=== PATIENT | male | born 1935 | race Caucasian/White ===

== ENCOUNTER 2018-09-23 17:24 | Inpatient (IN) | payer OTHER ==
--- NOTE | 2018-09-23 18:05 | PDOC ---
History of Present Illness - General Chief Complaint: Pain Stated Complaint: Pain Time Seen by Provider: 09/23/18 18:04 - History of Present Illness Initial Comments: 09/23/18 18:15 The patient is an 82 year old male who denies any PMH who presents for evaluation of abdominal pain. The patient is accompanied by family who assists in providing the history. They note a 1 week history of epigastric and RUQ burning abdominal pain worse with eating and acidic foods prompting his presentation to the ED for further evaluation. They note that the patient has been having significant weight loss over the past few weeks due to poor oral intake due to the pain as well. The patient is visiting from [place] and notes that he had an endoscopy at some point in [place] which was unremarkable. He otherwise denies fevers, chills, SOB, chest pain, nausea, vomiting, or changes with urination or bowel movements. Past History - Past Medical History Allergies/Adverse Reactions: Allergies Allergy/AdvReac Type Severity Reaction Status Date / Time No Known Allergies Allergy Verified 09/23/18 17:35 Home Medications: Ambulatory Orders Losartan Potassium [Cozaar -] 50 mg PO BID 09/24/18 COPD: No - Immunization History Immunization Up to Date: Yes - Suicide/Smoking/Psychosocial Hx Smoking History: Never smoked Hx Alcohol Use: No Drug/Substance Use Hx: No Review of Systems - Review of Systems Comments:: 09/23/18 18:20 Constitutional: No fevers, chills, fatigue, malaise HEENT: No Rhinorrhea, nasal congestion, visual changes Cardiovascular: No chest pain, syncope, palpitations, lightheadedness Respiratory: No Cough, SOB, Hemoptysis, Gastrointestinal: Abdominal pain. No Nausea, Vomiting, Constipation, Diarrhea, Melena Genitourinary: No Dysuria, Frequency, Urgency, Hesitancy, Hematuria, Flank pain Musculoskeletal: No Myalgia, arthralgia Skin: No rashes, itching, bruising, pallor Neurologic: No Headache, Dizziness, Numbness, Weakness, or Tingling Psychiatric: No Hallucinations. No SI or HI *Physical Exam - Vital Signs Last Vital Signs Temp Pulse Resp BP Pulse Ox 98.0 F 89 17 127/43 L 98 09/23/18 17:35 09/23/18 17:35 09/23/18 17:35 09/23/18 17:35 09/23/18 17:35 - Physical Exam Comments: 09/23/18 18:20 General Appearance: Nourished. No Apparent Distress HEENT: No Pharyngeal Erythema, Tonsillar Exudate, Tonsillar Erythema Neck: No Cervical Lymphadenopathy Respiratory/Chest: Lungs Clear, Normal Breath Sounds. No Crackles, Rales, Rhonchi, Wheezing Cardiovascular: Regular Rhythm, Regular Rate. No Murmur, Gallops, Rubs Gastrointestinal/Abdominal: Normal Bowel Sounds, Soft. RUQ tenderness to palpation on exam. No Guarding, Rebound, Musculoskeletal: No CVA Tenderness Extremity: Normal Capillary Refill Integumentary: Normal Color, Dry, Warm Neurologic: Fully Oriented, Alert, Normal Mood/Affect, Normal Response, ED Treatment Course - LABORATORY CBC & Chemistry Diagram: 09/24/18 06:45 09/24/18 06:00 Medical Decision Making - Medical Decision Making 09/23/18 18:21 The patient is an 82 year old male who denies any PMH who presents for evaluation of abdominal pain. Differential includes but is not limited to: Gastritis, ACS, Cholecysitis, Infectious, Metabolic Derangement. Given the patient's history and physical exam, we will obtain a cbc, cmp, troponin, lipase , coags, ekg, gallbladder US, CT abdomen/pelvis to evaluate further. We will treat with iv fluids, pepcid, and maalox and continue to monitor and reassess while here in the ED. 09/23/18 18:46 Bedside US demonstrates distended gallbladder without gallbladder wall thickening. Gallbladder sludge noted without gallstones. Emilia-hepatic free fluid noted as well. Unable to adequately view CBD. Official US to follow. 09/23/18 19:43 Patient signed out to the night team pending lab workup, US and CT. *DC/Admit/Observation/Transfer Diagnosis at time of Disposition: Metastatic cancer, Difficulty eating - Discharge Dispostion Condition at time of disposition: Stable - Referrals - Patient Instructions - Post Discharge Activity
[2018-09-23] MEDS ORDERED: FAMOTIDINE 20 MG/50 ML IVPB 20 MG/50 ML MG IVPB ONE ×2 (18:13→18:35)
--- NOTE | 2018-09-23 18:13 | PDOC ---
Attending Attestation - HPI HPI: The patient is an 82 year old male (current smoker- 2 cigarettes per day), with a significant PMH of hypertension, who presents to the emergency department today complaining of abdominal pain for six months. As per daughter, patient has been complaining of abdominal pain for six months. He has seen multiple doctors in [facility], none of which could provide him with a causal diagnosis. Patient had endoscopy done in the past, which was negative. He describes his abdominal pain as localized to the right upper quadrant, exacerbated with touch , burning in nature, and worse with eating acidic foods or meat. Patient also endorses significant weight loss secondary to decreased PO intake, losing 30 pounds throughout the past six months. Patient is currently visiting from [facility] (flew in 5 days ago), and had an appointment with a GI doctor (Not on Staff) who cancelled, prompting his visit to the ED for treatment. The patient denies chest pain, shortness of breath, headache and dizziness. Denies fever, chills, nausea, vomit, diarrhea and constipation. Denies dysuria, frequency, urgency and hematuria. Allergies: NKA Past surgical history: Endoscopy Social history: Current smoker (2 cigarettes per day) PCP: From [facility] 09/23/18 18:49 - Physicial Exam PE: GENERAL: The patient is in no acute distress. HEAD: Normal with no signs of trauma. EYES: +Artificial left eye. Right eye EOMI, sclera anicteric, conjunctiva clear. ENT: Ears normal, nares patent, oropharynx clear without exudates. Moist mucous membranes. NECK: Normal range of motion, supple without lymphadenopathy, JVD, or masses. LUNGS: Breath sounds equal, clear to auscultation bilaterally. No wheezes, and no crackles. HEART:Regular rate and rhythm, normal S1 and S2 without murmur, rub or gallop. ABDOMEN: +Right upper quadrant severely tender to palpation. Soft, normoactive bowel sounds. No guarding, no rebound. No masses palpable. EXTREMITIES: Normal range of motion, no edema. No clubbing or cyanosis. No erythema, or tenderness. NEUROLOGICAL: Cranial nerves II through XII grossly intact. Normal speech. No focal neurological deficits. MUSCULOSKELETAL: Back non-tender to palpation, no CVA tenderness SKIN: Warm, Dry, normal turgor, no rashes or lesions noted. 09/23/18 18:50 - Medical Decision Making Bedside US: Distended gall bladder and free fluid around the liver visualized. EXAM#: TYPE/EXAM: RESULT: [id number] US/ABDOMEN US -LIMITED Right upper quadrant pain. IMPRESSION: Adequately distended gallbladder that is partially filled with a sludge and without wall thickening. There is a trace of pericholecystic free fluid. There is also minimal free fluid/ ascites in the right upper quadrant. The rest of the examination appears unremarkable. Reported By: Fausto Yuen MD 09/23/18 21:12 EXAM: ABDOMEN \\T\\ PELVIS CT WITH CONTR HISTORY: Right upper quadrant pain FINDINGS: There are bronchovascular nodules in the right lower lobe with tree-in-bud pattern compatible with nonspecific bronchiolitis Noncalcified nodule in the right lower lobe measuring 7 mm, series 4 image 18, nonspecific, cannot exclude a metastatic lesion Area of cystic bronchiectasis in the left lower lobe Bibasilar scarring Thickened appearance of the distal esophagus and irregular thickening and enhancement of the gastric fundus and body concerning for malignancy There is extensive gastrohepatic and retroperitoneal adenopathy in the upper abdomen concerning for malignant adenopathy Perihepatic and perisplenic ascites with small amount of ascites in the pelvis The gallbladder is moderately distended with no radiopaque stones visualized. No appreciable gallbladder wall thickening The liver, spleen, pancreas, adrenal glands and kidneys are unremarkable There is no bowel distention A normal appendix is visualized The prostate is enlarged Multiple lytic lesions in the sacrum and pelvis the largest in the left iliac bone measuring 2 cm concerning for metastatic disease Rebel Peraza MD 09/24/2018 01:45 Documentation prepared by CORNELIA Kang, acting as medical record administrator for Veronica Harmon MD. 09/24/18 03:40 <Mary Meeks - Last Filed: 09/24/18 03:40> - Resident Resident Name: Barber Garcia - ED Attending Attestation I have performed the following: I have examined & evaluated the patient, The case was reviewed & discussed with the resident, I agree w/resident's findings & plan, Exceptions are as noted - Medical Decision Making 09/23/18 18:42 82 yo M h/o HTN presenting to the ER with a complaint of abdominal pain x 6 months No fevers, no chills No nausea, no vomiting, no diarrhea Pt has had constant pain rated "mild", pain is worse with palpation of the right upper abdomen pt notes that he can not eat meat, he is now eating pureed and liquid diet Weight loss - 30 lbs in the past 6 months Pt recently arrived from [place] where he had a work up consisting of Endoscopy which was reportedly negative Pt was supposed to see a GI doctor today but the appointment was cancelled Pt denies h/o abdominal surgery On examination: RUQ exquisitely tender to palpation Will do: Labs including trop EKG CT and US PPI Re Assess 09/23/18 19:50 Laboratory Tests 09/23/18 09/23/18 09/23/18 18:57 18:57 18:57 WBC 7.2 Hgb 9.2 L Hct 30.5 L Plt Count 437 H INR 1.18 H BUN 13 Creatinine 0.6 Total Bilirubin 0.2 AST 20 ALT 12 L Lipase 281 09/24/18 00:41 EKG - NSR rate of 69 bpm, no ST elevation or depression, t wave inversion v4-v6 09/24/18 01:11 Laboratory Tests 09/23/18 18:57 Creatine Kinase 41 Troponin I < 0.02 CT was not sent Still pending Thickened appearance of the distal esophagus and irregular thickening and enhancement of the gastric fundus and body concerning for malignancy There is extensive gastrohepatic and retroperitoneal adenopathy in the upper abdomen concerning for malignant adenopathy Perihepatic and perisplenic ascites with small amount of ascites in the pelvis The gallbladder is moderately distended with no radiopaque stones visualized. No appreciable gallbladder wall thickening The liver, spleen, pancreas, adrenal glands and kidneys are unremarkable There is no bowel distention A normal appendix is visualized The prostate is enlarged Multiple lytic lesions in the sacrum and pelvis the largest in the left iliac bone measuring 2 cm concerning for metastatic disease Clinical impression: new diagnosis of cancer <Veronica Harmon - Last Filed: 09/24/18 20:03> *DC/Admit/Observation/Transfer <Mary Meeks - Last Filed: 09/24/18 03:40> - Discharge Dispostion Decision to Admit order: Yes <Veronica Harmon - Last Filed: 09/24/18 20:03> Diagnosis at time of Disposition: Metastatic cancer, Difficulty eating - Discharge Dispostion Condition at time of disposition: Stable
[2018-09-23] MEDS ORDERED: SODIUM CHLORIDE 500 ML IV STA (18:14)
[2018-09-23] MEDS ORDERED: MAG HYDROX/AL HYDROX/SIMETH 30 ML UNIT-DOSE CUP PO ONE (18:22)
[2018-09-23] MEDS ORDERED: MAG HYDROX/AL HYDROX/SIMETH 30 ML UNIT-DOSE CUP ONE (18:35)
[2018-09-23 19:06] LABS: BASO % 0.8 % (0-2.0); EOS % 1.2 % (0-4.5); HEMATOCRIT 30.5 % (35.4-49); HEMOGLOBIN 9.2 GM/dL (11.7-16.9); LYMPH % 25.2 % (8-40); MCH 21.1 pg (25.7-33.7); MCHC 30.2 g/dl (32.0-35.9); MEAN CELL VOLUME 69.6 fl (80-96); MEAN PLT VOLUME 6.7 fl (7.5-11.1); MONO % 6.9 % (3.8-10.2); NEUT % 65.9 % (42.8-82.8); PLATELET COUNT 437 K/MM3 (134-434); RBC 4.37 M/mm3 (4.00-5.60); RDW 19.5 % (11.9-15.9); WHITE BLOOD COUNT 7.2 K/mm3 (4.0-10.0)
--- NOTE | 2018-09-23 19:12 | PDOC ---
History of Present Illness - General Chief Complaint: Pain Stated Complaint: Pain Time Seen by Provider: 09/23/18 18:04 Past History - Past Medical History Allergies/Adverse Reactions: Allergies Allergy/AdvReac Type Severity Reaction Status Date / Time No Known Allergies Allergy Verified 09/23/18 17:35 Home Medications: Ambulatory Orders Losartan Potassium [Cozaar -] 50 mg PO BID 09/24/18 Albuterol 0.083% Nebulizer Trina [Ventolin 0.083% Nebulizer Soln -] 1 amp NEB Q6H PRN #1 amp 09/29/18 Amino Acids/Protein Hydrolys [Prosource No Carb Liquid Pkt] 30 ml PO BID@0800, 1730 #30 packet 09/29/18 Docusate Sodium [Colace -] 100 mg PO TID #90 capsule 09/29/18 Ferrous Sulfate [Feosol] 325 mg PO DAILY #30 ud 09/29/18 Labetalol HCl [Normodyne -] 100 mg PO BID #60 tablet 09/29/18 Mag Hydrox/Al Hydrox/Simeth [Mylanta Oral Suspension -] 30 ml PO Q6H PRN #30 cup 09/29/18 Pantoprazole Sodium [Protonix -] 40 mg PO DAILY #30 tablet.ec 09/29/18 Sennosides [Senna -] 1 tab PO BID #60 tablet 09/29/18 COPD: No - Immunization History Immunization Up to Date: Yes - Suicide/Smoking/Psychosocial Hx Smoking History: Never smoked Hx Alcohol Use: No Drug/Substance Use Hx: No *Physical Exam - Vital Signs Last Vital Signs Temp Pulse Resp BP Pulse Ox 98.0 F 89 17 127/43 L 98 09/23/18 17:35 09/23/18 17:35 09/23/18 17:35 09/23/18 17:35 09/23/18 17:35 ED Treatment Course - LABORATORY CBC & Chemistry Diagram: 10/01/18 06:00 10/01/18 06:00 - ADDITIONAL ORDERS Additional order review: 09/23/18 18:57 RBC 4.37 MCV 69.6 L MCHC 30.2 L RDW 19.5 H MPV 6.7 L Neutrophils % 65.9 Lymphocytes % 25.2 Monocytes % 6.9 Eosinophils % 1.2 Basophils % 0.8 - Medications Given in the ED: ED Medications Discontinued Medications Generic Name Dose Route Start Last Admin Trade Name Gene PRN Reason Stop Dose Admin Al Hydroxide/Mg Hydroxide 30 ml 09/23/18 18:22 09/23/18 18:52 Mylanta Oral Suspension - PO 09/23/18 18:23 30 ml ONCE ONE Administration Famotidine/Sodium Chloride 20 mg in 50 mls @ 100 mls/hr 09/23/18 18:13 18:52 Pepcid 20 Mg Premixed Ivpb - IVPB 09/23/18 18:42 100 mls/hr ONCE ONE Administration Medical Decision Making - Medical Decision Making 09/23/18 19:29 Patient signed out by resident Dr. Garcia. In short patient is an 82 year old man with RUQ pain with negative endoscopy in [place] but with bedside US exhibiting distended gallbladder and thickened gallbladder. Pending formal US and labs ED Course: US: distended gallbladder filled with sludghe without wall thickening, trace pericholecystic free fluid ' pending CT 09/24/18 03:30 Ct: thickened appearance of the distal esophagus and irregular thickening and enhancement of the gastric fundus and body concerning for malignancy. There is extensive gastrohepatic and retroperitoneal adenopathy in the upper abdomen concerning for malignant adenopathy. Perihepatic and perisplenic ascites with small amount of ascites in the pelvis. Multiple lytic lesiosn in the sacrum and pelvis the largest in the left iliac bone measuring 2cmconcerning for metastatic disease. Discussed case with resident Dr. Bueno Patient admitted for further managment and oncology evaluation *DC/Admit/Observation/Transfer Diagnosis at time of Disposition: Metastatic cancer, Difficulty eating - Discharge Dispostion Condition at time of disposition: Stable - Referrals - Patient Instructions - Post Discharge Activity
[2018-09-23 19:29] LABS: INR 1.18 (0.83-1.09); PROTHROMBIN TIME (PATIENT) 13.9 SEC (9.7-13.0)
[2018-09-23 19:30] LABS: ALBUMIN 2.6 g/dl (3.4-5.0); ALK PHOS 82 U/L (45-117); ANION GAP 7 MMOL/L (8-16); BILIRUBIN,TOTAL 0.2 mg/dL (0.2-1); BLOOD UREA NITROGEN 13 mg/dL (7-18); CALCIUM 7.5 mg/dL (8.5-10.1); CHLORIDE 99 mmol/L (98-107); CO2 26 mmol/L (21-32); CREATININE 0.6 mg/dL (0.55-1.3); GLUCOSE,RANDOM 85 mg/dL (74-106); LIPASE 281 U/L (73-393); POTASSIUM 4.5 mmol/L (3.5-5.1); SGOT/AST 20 U/L (15-37); SGPT/ALT 12 U/L (13-61); SODIUM 132 mmol/L (136-145)
[2018-09-23 21:40] LABS: ANISOCYTOSIS 1+
[2018-09-23 21:41] LABS: PLATELET ESTIMATE ADEQUATE; TARGET CELLS FEW
--- NOTE | 2018-09-24 03:19 | HP ---
CHIEF COMPLAINT: PCP: HISTORY OF PRESENT ILLNESS: This is an 82 yo M with no PMH, who presents due to abdominal pain x 1w. Pain is located in epigastric and RUQ region, nonradiating, burning and worsened with eating acidic foods. patient reportedly suffered significant weight loss over the past few weeks due to poor PO intake. RUQ US was unimprssive but CT abd /pelvis was significant for gastroesphgageal metastatic disease. Denies f/c, h/a, cp, cough, SOB, n/v/d/c, melena, hematochezia, dysuria, hematuria. History is obtained from patient and family. ER course was notable for: (1)labs (2)RUQ US, CT Pelvis (3)mylanta famotidine, NS Recent Travel: visiting from [place] PAST MEDICAL HISTORY: none PAST SURGICAL HISTORY: none Social History: Smoking: denies Alcohol:denies Drugs: denies Family History: noncontributory Allergies No Known Allergies Allergy (Verified 09/23/18 17:35) HOME MEDICATIONS: REVIEW OF SYSTEMS CONSTITUTIONAL: Absent: fever, chills HEENT: Absent: rhinorrhea, nasal congestion, throat pain CARDIOVASCULAR: Absent: chest pain, syncope, palpitations, irregular heart rate, lightheadedness , peripheral edema RESPIRATORY: Absent: cough, shortness of breath, dyspnea with exertion, orthopnea GASTROINTESTINAL: Absent: abdominal distension, nausea, vomiting, diarrhea, constipation, melena, hematochezia GENITOURINARY: Absent: dysuria, flank pain MUSCULOSKELETAL: Absent: back pain, neck pain SKIN: Absent: rash, itching, pallor HEMATOLOGIC/IMMUNOLOGIC: Absent: frequent infections ENDOCRINE: Absent: heat intolerance, cold intolerance NEUROLOGIC: Absent: headache, focal weakness or paresthesias PSYCHIATRIC: Absent: anxiety, depression PHYSICAL EXAMINATION Vital Signs - 24 hr 09/23/18 17:35 Temperature 98.0 F Pulse Rate 89 Respiratory 17 Rate Blood Pressure 127/43 L O2 Sat by Pulse 98 Oximetry (%) GENERAL: Awake, alert, and fully oriented, in no acute distress. HEAD: Normal with no signs of trauma. EYES: Pupils equal, round and reactive to light, extraocular movements intact, sclera anicteric, conjunctiva clear. EARS, NOSE, THROAT: Moist mucous membranes. NECK: supple LUNGS: Breath sounds equal, clear to auscultation bilaterally. HEART: Regular rate and rhythm, normal S1 and S2 ABDOMEN: Soft, slightly tender epigastric and ruq, not distended, normoactive bowel sounds, no guarding, no rebound, + hepatomegaly MUSCULOSKELETAL: No CVA tenderness. UPPER EXTREMITIES: 2+ pulses, warm, well-perfused. LOWER EXTREMITIES: warm, well-perfused. No calf tenderness. No peripheral edema. NEUROLOGICAL: Cranial nerves II-XII grossly intact. Normal speech. PSYCHIATRIC: Cooperative. Good eye contact. Appropriate mood and affect. SKIN: Warm, dry Laboratory Results - last 24 hr 09/23/18 09/23/18 09/23/18 18:57 18:57 18:57 WBC 7.2 RBC 4.37 Hgb 9.2 L Hct 30.5 L MCV 69.6 L MCH 21.1 L MCHC 30.2 L RDW 19.5 H Plt Count 437 H MPV 6.7 L Absolute Neuts (auto) 4.8 Neutrophils % 65.9 Lymphocytes % 25.2 Monocytes % 6.9 Eosinophils % 1.2 Basophils % 0.8 Nucleated RBC % 0 Hypochromia 2+ Platelet Estimate Adequate Anisocytosis 1+ Target Cells Few PT with INR 13.90 H INR 1.18 H PTT (Actin FS) 30.0 Sodium 132 L Potassium 4.5 Chloride 99 Carbon Dioxide 26 Anion Gap 7 L BUN 13 Creatinine 0.6 Creat Clearance w eGFR 129.64 Random Glucose 85 Calcium 7.5 L Total Bilirubin 0.2 AST 20 ALT 12 L Alkaline Phosphatase 82 Creatine Kinase 41 Troponin I < 0.02 Total Protein 6.0 L Albumin 2.[address]: thickened appearance of the distal esophagus and irregular thickening and enhancement of the gastric fundus and body concerning for malignancy. There is extensive gastrohepatic and retroperitoneal adenopathy in the upper abdomen concerning for malignant adenopathy. Perihepatic and perisplenic ascites with small amount of ascites in the pelvis. Multiple lytic lesiosn in the sacrum and pelvis the largest in the left iliac bone measuring 2cmconcerning for metastatic disease. ASSESSMENT/PLAN: This is an 82 yo M with no PMH, who presents due to abdominal pain x 1w. Abdominal pain Gastroesophageal mass with adenopathy suspicious for metastatic disease HTN -pain resolved with mylanta, famotidine, continue prn -heme/onc consult for further evaluation -GI consul for endoscopy biopsy -continue losartan Problem List - Problem (1) Cachexia Code(s): R64 - CACHEXIA (2) Metastatic cancer Code(s): C79.9 - SECONDARY MALIGNANT NEOPLASM OF UNSPECIFIED SITE (3) HTN (hypertension) Code(s): I10 - ESSENTIAL (PRIMARY) HYPERTENSION Visit type - Emergency Visit Emergency Visit: Yes ED Registration Date: 09/24/18 Care time: The patient presented to the Emergency Department on the above date and was hospitalized for further evaluation of their emergent condition. - New Patient This patient is new to me today: Yes Date on this admission: 09/24/18 - Critical Care Critical Care patient: No
--- NOTE | 2018-09-24 03:57 | PN ---
Teaching Attending Note Name of Resident: Rosa Elena Bueno ATTENDING PHYSICIAN STATEMENT I saw and evaluated the patient. I reviewed the resident's note and discussed the case with the resident. I agree with the resident's findings and plan as documented. SUBJECTIVE: Patient is an 82 year old man with PMH of HTN who presents to the ER with a complaint of abdominal pain for 6 months. He arrived from [facility] 1 week ago and was scheduled to see a GI doctor today, but his pain got very bad and he asked his daughter to bring him to the ER. Over the past 6 months he has not been able to eat solid food like meat and has been eating pureed food and liquids. Has had an unintentional 30 lb weight loss over the same period. Denies fevers, chills, nausea, vomiting, change in bowel habit, SOB, headache, dysuria or family history of cancer. No prior abdominal surgeries. Nonsmoker and does not use any illicit drugs. OBJECTIVE: Alert, frail and ill-looking Vital Signs Period Temp Pulse Resp BP Sys/Dangelo Pulse Ox Last 24 Hr 98.0 F-98.5 F 63-89 17-18 127-170/43-69 98-100 HEENT: No Jaundice, eye redness or discharge, PERRLA, EOMI. Normocephalic, atraumatic. External ears are normal and hearing is grossly intact. No nasal discharge. Neck: Supple, nontender. No palpable adenopathy or thyromegaly. No JVD Chest: Good effort. Clear to auscultation and percussion. Heart: Regular. No S3, rub or murmur Abdomen: Not distended, soft, RUQ tenderness and no HSM. No rebound or guarding. Normal bowel sounds. Ext: Peripheral pulses intact. No leg edema. Skin: Warm and dry. No petechiae, rash or ecchymosis. Neuro: Alert. Oriented x3. Slugish. CN 2-12 grossly intact. Sensation grossly intact in all four extremities and DTR are symmetric. Psych: Appropriate mood and affect - withdrawn and sad. Good insight. Home Medications Medication Instructions Recorded Losartan Potassium [Cozaar -] 50 mg PO BID 09/24/18 Abnormal Lab Results 09/23/18 09/23/18 09/23/18 18:57 18:57 18:57 Hgb 9.2 L Hct 30.5 L MCV 69.6 L MCH 21.1 L MCHC 30.2 L RDW 19.5 H Plt Count 437 H MPV 6.7 L PT with INR 13.90 H INR 1.18 H Sodium 132 L Anion Gap 7 L Calcium 7.5 L ALT 12 L Total Protein 6.0 L Albumin 2.6 L ASSESSMENT AND PLAN: 1. Abdominal pain (?Gastric cancer/esophageal cancer) - Ultrasound of the upper abdomen showed distended gallbladder filled with sludge without wall thickening , trace pericholecystic free fluid. CT scan of abd/pelvis with contrast showed - thickened appearance of the distal esophagus and irregular thickening and enhancement of the gastric fundus and body concerning for malignancy. There is extensive gastrohepatic and retroperitoneal adenopathy in the upper abdomen concerning for malignant adenopathy. Perihepatic and perisplenic ascites with small amount of ascites in the pelvis. Multiple lytic lesiosn in the sacrum and pelvis the largest in the left iliac bone measuring 2cm concerning for metastatic disease. Will consult oncology and GI to rule out stomach/esophageal cancer and craft a plan of care. Testing for tumor markers at this time unlikely to affect management since tissue diagnosis is the goal. Treat with analgesics and protonix and provide generous emotional support. Family does not want any cancer diagnosis discussed with him - alone. 2. Hypoalbuminemia - Possibly due to combined effects of malnutrition and inflammation associated with comorbid chronic conditions. Will get urinalysis. Will ensure adequate dietary protein intake and also consult export clerk. 3. Low MCV Anemia - Likely multifactorial. Do basic anemia work up including serial stool guaiacs, reticulocyte count and iron studies. 4. Hypertension - His BP improved to 127/43 in the ER. Will continue outpatient antihypertensive drugs and revise regimen to ensure smooth [id number] good BP control. Nonpharmacologic measures to control hypertension like salt restriction discussed. 5. DVT prophylaxis - Lovenox 40 mg SQ q 24 hours. 6. Advance directives - Full code
[2018-09-24] MEDS ORDERED: MAG HYDROX/AL HYDROX/SIMETH 30 ML UNIT-DOSE CUP PO PRN (04:08)
[2018-09-24] MEDS ORDERED: ACETAMINOPHEN 325 MG TABLET (FP) PO PRN (04:09)
[2018-09-24 07:38] LABS: HEMATOCRIT 29.5 % (35.4-49); HEMOGLOBIN 9.2 GM/dL (11.7-16.9); MCH 21.3 pg (25.7-33.7); MCHC 31.1 g/dl (32.0-35.9); MEAN CELL VOLUME 68.7 fl (80-96); PLATELET COUNT 444 K/MM3 (134-434); RDW 19.3 % (11.9-15.9); WHITE BLOOD COUNT 8.5 K/mm3 (4.0-10.0)
[2018-09-24 08:04] LABS: ANION GAP 5 MMOL/L (8-16); BLOOD UREA NITROGEN 9 mg/dL (7-18); CALCIUM 7.6 mg/dL (8.5-10.1); CHLORIDE 99 mmol/L (98-107); CO2 28 mmol/L (21-32); CREATININE 0.6 mg/dL (0.55-1.3); GLUCOSE,RANDOM 80 mg/dL (74-106); MAGNESIUM 2.2 mg/dL (1.8-2.4); PHOSPHOROUS 3.6 mg/dL (2.5-4.9); POTASSIUM 4.8 mmol/L (3.5-5.1); SODIUM 132 mmol/L (136-145)
[2018-09-24] MEDS ORDERED: PNEUMOC 13-VAL CONJ-DIP CRM/PF 0.5 ML DISP.SYRIN IM ONE (10:00)
[2018-09-24] MEDS ORDERED: FLU VACCINE QUAD 60 MCG/0.5 ML (MDV 18-19) IM ONE (10:00)
--- NOTE | 2018-09-24 10:39 | PN ---
Progress Note (short form) - Note Progress Note: Patient is an 82 year old man with PMHx of HTN who presents to the ER with a complaint of abdominal pain for 6 months. He arrived from [facility] 1 week ago and was scheduled to see a GI doctor but his abdominal pain became worse, came ED. for further care. Patient has no fever or chills. Vital Signs Temperature 98.5 F 09/24/18 03:10 Pulse Rate 67 09/24/18 03:58 Respiratory Rate 18 09/24/18 03:58 Blood Pressure 150/68 09/24/18 03:58 O2 Sat by Pulse Oximetry (%) 100 09/24/18 03:31 GENERAL: The patient is awake, alert, and fully oriented, in no acute distress. HEAD: Normal with no signs of trauma. EYES: PERRL, extraocular movements intact, sclera anicteric, conjunctiva clear. No ptosis. ENT: Ears normal, nares patent, oropharynx clear without exudates, moist mucous membranes. NECK: Trachea midline, full range of motion, supple. LUNGS: Breath sounds equal, clear to auscultation bilaterally, no wheezes, no crackles, no accessory muscle use. HEART: Regular rate and rhythm, S1, S2 without murmur, rub or gallop. ABDOMEN: Soft, nontender, nondistended, normoactive bowel sounds, no guarding, no rebound, no hepatosplenomegaly, no masses. EXTREMITIES: 2+ pulses, warm, well-perfused, no edema. NEUROLOGICAL: Cranial nerves II through XII grossly intact. Normal speech, gait not observed. PSYCH: Normal mood, normal affect. SKIN: Warm, dry, normal turgor, no rashes or lesions noted CBCD WBC 8.5 K/mm3 (4.0-10.0) 09/24/18 06:45 RBC 4.30 M/mm3 (4.00-5.60) 09/24/18 06:45 Hgb 9.2 GM/dL (11.7-16.9) L 09/24/18 06:45 Hct 29.5 % (35.4-49) L 09/24/18 06:45 MCV 68.7 fl (80-96) L 09/24/18 06:45 MCHC 31.1 g/dl (32.0-35.9) L 09/24/18 06:45 RDW 19.3 % (11.9-15.9) H 09/24/18 06:45 Plt Count 444 K/MM3 (134-434) H 09/24/18 06:45 MPV 7.0 fl (7.5-11.1) L 09/24/18 06:45 CMP Sodium 132 mmol/L (136-145) L 09/24/18 06:00 Potassium 4.8 mmol/L (3.5-5.1) 09/24/18 06:00 Chloride 99 mmol/L (98-107) 09/24/18 06:00 Carbon Dioxide 28 mmol/L (21-32) 09/24/18 06:00 Anion Gap 5 MMOL/L (8-16) L 09/24/18 06:00 BUN 9 mg/dL (7-18) 09/24/18 06:00 Creatinine 0.6 mg/dL (0.55-1.3) 09/24/18 06:00 Creat Clearance w eGFR 129.64 (>60) 09/24/18 06:00 Random Glucose 80 mg/dL (74-106) 09/24/18 06:00 Calcium 7.6 mg/dL (8.5-10.1) L 09/24/18 06:00 Total Bilirubin 0.2 mg/dL (0.2-1) 09/23/18 18:57 AST 20 U/L (15-37) 09/23/18 18:57 ALT 12 U/L (13-61) L 09/23/18 18:57 Alkaline Phosphatase 82 U/L (45-117) 09/23/18 18:57 Total Protein 6.0 g/dl (6.4-8.2) L 09/23/18 18:57 Albumin 2.6 g/dl (3.4-5.0) L 09/23/18 18:57 CARDIAC ENZYMES Creatine Kinase 41 U/L (26-308) 09/23/18 18:57 Troponin I < 0.02 ng/ml (0.00-0.05) 09/23/18 18:57 Current Medications Generic Name Dose Route Start Last Admin Trade Name Freq PRN Reason Stop Dose Admin Acetaminophen 650 mg 09/24/18 04:09 Tylenol - PO Q4H PRN PAIN LEVEL 1-5 Al Hydroxide/Mg Hydroxide 30 ml 09/24/18 04:08 Mylanta Oral Suspension - PO Q6H PRN DYSPEPSIA Enoxaparin Sodium 40 mg 09/24/18 10:00 Lovenox - SQ DAILY LOLA Losartan Potassium 50 mg 09/24/18 10:00 Cozaar - PO BID LOLA Pantoprazole Sodium 40 mg 09/24/18 10:00 Protonix - PO DAILY [facility] Home Medications Medication Instructions Recorded Losartan Potassium [Cozaar -] 50 mg PO BID 09/24/18 US of the upper abdomen showed distended gallbladder filled with sludge without wall thickening, trace pericholecystic free fluid. Ct: thickened appearance of the distal esophagus and irregular thickening and enhancement of the gastric fundus and body concerning for malignancy. There is extensive gastrohepatic and retroperitoneal adenopathy in the upper abdomen concerning for malignant adenopathy. Perihepatic and perisplenic ascites with small amount of ascites in the pelvis. Multiple lytic lesiosn in the sacrum and pelvis the largest in the left iliac bone measuring 2cmconcerning for metastatic disease. Assessment and plan: Patient is an 82 year old man with PMHx of HTN who presents to the ER with a complaint of abdominal pain for 6 months. He arrived from [facility] 1 week ago and was scheduled to see a GI doctor today, but his pain got worse and was brought in to ED. for further care. As per patient, he is not aware of any diagnosis at [place], no one was able to tell him what's wrong with him. # Abdominal pain with CT abdomen with irregular thickening with enhancement cannot r/o malignancy. GI consult for EGD/colonoscopy , onc cosult. #HTN continue home med. losartan 50mg bid DVT prophylaxis - Lovenox 40 mg SQ q 24 hours. Advance directives - Full code Visit type - Emergency Visit Emergency Visit: Yes ED Registration Date: 09/24/18 Care time: The patient presented to the Emergency Department on the above date and was hospitalized for further evaluation of their emergent condition. - New Patient This patient is new to me today: Yes Date on this admission: 09/24/18 - Critical Care Critical Care patient: No - Discharge Referral Referred to [facility] No
[2018-09-24] MEDS: PANTOPRAZOLE 40 MG TABLET (FP) PO SCH (11:37)
[2018-09-24] MEDS: LOSARTAN POTASSIUM 50 MG TABLET (FP) PO SCH ×2 (11:37→21:58)
[2018-09-24] MEDS: ENOXAPARIN NA (PORCINE) 40 MG/0.4 ML DISP.SYRIN SQ SCH (11:37)
--- NOTE | 2018-09-24 12:46 | CON.GI ---
Consult Consult Specialty:: GI Reason for Consultation:: Weight loss, dysphagia - History of Present Illness Chief Complaint: 82 y.o. M from [facility] with increasing dysphagia and weight loss since last January. States he had an EGD in [facility] 4 months ago and was not told of any abnormalities. History of Present Illness: See chief complaint. - History Source History Provided By: Patient Limitations to Obtaining History: No Limitations - Alcohol/Substance Use Hx Alcohol Use: No - Smoking History Smoking history: Current every day smoker Have you smoked in the past 12 months: Yes Aproximately how many cigarettes per day: 20 (1 PPD starting age 14) - Social History Usual Living Arrangement: Alone ADL: Independent Place of : Other ([facility]) History of Recent Travel: Yes (arrived from [facility]) Home Medications - Allergies Allergies/Adverse Reactions: Allergies Allergy/AdvReac Type Severity Reaction Status Date / Time No Known Allergies Allergy Verified 09/23/18 17:35 - Home Medications Home Medications: Ambulatory Orders Losartan Potassium [Cozaar -] 50 mg PO BID 09/24/18 Review of Systems - Review of Systems Constitutional: reports: Unintentional Wgt. Loss Physical Exam-GI Vital Signs: Vital Signs Temperature 98.5 F 09/24/18 03:10 Pulse Rate 67 09/24/18 03:58 Respiratory Rate 18 09/24/18 03:58 Blood Pressure 150/68 09/24/18 03:58 O2 Sat by Pulse Oximetry (%) 100 09/24/18 03:31 Neck: Yes: Other (Shotty lymph nodes palpable along L. side of neck and supraclavicular area.) Gastrointestinal Inspection: Yes: WNL Labs: CBC, BMP 09/24/18 06:45 09/24/18 06:00 INR, PTT INR 1.18 (0.83-1.09) H 09/23/18 18:57 Imaging - Results Cat Scan: Image Reviewed (Thickened stomach wall, probable adenopathy, trace ascites.) Assessment/Plan Cachexia, weight loss, dysphagia, abnormal stomach on imaging. Gastric ca likely ; lung cancer also possible. To obtain CXR; for EGD Wednesday morning. EGD discussed with patient and family at bedside.
--- NOTE | 2018-09-24 22:05 | CONSULT ---
Consult Consult Specialty:: Oncology Referred by:: Medicine Reason for Consultation:: Suspected GI malignancy - History of Present Illness Chief Complaint: LOW, anemia History of Present Illness: Patient presents with several months history of loss of weight. Found to have anemia, and CT abdomen revelaing gastric mass, with associated lymphadenopathy, suspicious for GI malignancy. No acute complaints presently, but says he has been having some dysphagia for solid foods lately. Reports an episode of dark stools several months ago - subsequently resolved. - History Source History Provided By: Patient, Family Member Limitations to Obtaining History: No Limitations - Alcohol/Substance Use Hx Alcohol Use: No - Smoking History Smoking history: Current every day smoker Have you smoked in the past 12 months: Yes Aproximately how many cigarettes per day: 20 (1 PPD starting age 14) - Social History Usual Living Arrangement: Alone ADL: Independent History of Recent Travel: Yes (arrived from [facility]) Home Medications - Allergies Allergies/Adverse Reactions: Allergies Allergy/AdvReac Type Severity Reaction Status Date / Time No Known Allergies Allergy Verified 09/23/18 17:35 - Home Medications Home Medications: Ambulatory Orders Losartan Potassium [Cozaar -] 50 mg PO BID 09/24/18 Review of Systems - Review of Systems Constitutional: reports: Loss of Appetite, Unintentional Wgt. Loss, Weakness Eyes: reports: No Symptoms HENT: reports: No Symptoms, Other (Dyspahgia) Neck: reports: No Symptoms Cardiovascular: reports: No Symptoms Respiratory: reports: No Symptoms Gastrointestinal: reports: Other (As above) Integumentary: reports: No Symptoms Neurological: reports: No Symptoms Endocrine: reports: No Symptoms Hematology/Lymphatic: reports: No Symptoms Psychiatric: reports: No Symptoms Physical Exam Vital Signs: Vital Signs Temperature 97.6 F 09/24/18 18:07 Pulse Rate 75 09/24/18 18:07 Respiratory Rate 20 09/24/18 18:07 Blood Pressure 146/59 L 09/24/18 18:07 O2 Sat by Pulse Oximetry (%) 100 09/24/18 10:05 Constitutional: Yes: Well Nourished, No Distress Eyes: Yes: Conjunctiva Clear HENT: Yes: Normocephalic Neck: Yes: Supple, Trachea Midline. No: Lymphadenopathy Cardiovascular: Yes: Regular Rate and Rhythm, S1, S2. No: Murmur, Rub Respiratory: Yes: Regular, CTA Bilaterally Gastrointestinal: Yes: Normal Bowel Sounds. No: Palpable Mass, Tenderness ...Rectal Exam: Yes: Deferred Musculoskeletal: Yes: WNL Extremities: Yes: WNL Edema: No Peripheral Pulses WNL: Yes Integumentary: Yes: WNL Neurological: Yes: Alert, Oriented, Cran Nerves II-XII Intact ...Motor Strength: WNL Psychiatric: Yes: Alert, Oriented Labs: CBC, BMP 09/24/18 06:45 09/24/18 06:00 Imaging - Results Cat Scan: Report Reviewed Assessment/Plan Patient presenting with sevarl months cachexia, microcytic anemia, and gastric mass and associated adenopathy on CT scan, suggestive of locally advanced gastric cancer. GI consult - and gastroscopy pending. Microcytic anemia. Screen for iron deficiency Will follow.
[2018-09-25] MEDS: LOSARTAN POTASSIUM 50 MG TABLET (FP) PO SCH ×2 (10:31→22:16)
[2018-09-25] MEDS: PANTOPRAZOLE 40 MG TABLET (FP) PO SCH (10:31)
[2018-09-25] MEDS: ENOXAPARIN NA (PORCINE) 40 MG/0.4 ML DISP.SYRIN SQ SCH (10:32)
--- NOTE | 2018-09-25 11:27 | PN ---
Progress Note (short form) - Note Progress Note: Patient seen in follow up. No new complaints. Eating with appetite. No significant events overnight. Inpatient Meds reviewed. Current Medications Acetaminophen (Tylenol -) 650 mg PO Q4H PRN PRN Reason: PAIN LEVEL 1-5 Al Hydroxide/Mg Hydroxide (Mylanta Oral Suspension -) 30 ml PO Q6H PRN PRN Reason: DYSPEPSIA Enoxaparin Sodium (Lovenox -) 40 mg SQ DAILY COUNTS INCLUDE 234 BEDS AT THE [facility] Last Admin: 09/25/18 10:32 Dose: 40 mg Iron Sucrose 200 mg/ Sodium (Chloride) 100 mls @ 100 mls/hr IVPB DAILY COUNTS INCLUDE 234 BEDS AT THE [facility] Stop: 09/27/18 10:59 Losartan Potassium (Cozaar -) 50 mg PO BID COUNTS INCLUDE 234 BEDS AT THE [facility] Last Admin: 09/25/18 10:31 Dose: 50 mg Pantoprazole Sodium (Protonix -) 40 mg PO DAILY COUNTS INCLUDE 234 BEDS AT THE [facility] Last Admin: 09/25/18 10:31 Dose: 40 mg On Examination: Last Vital Signs Temp Pulse Resp BP Pulse Ox 98.4 F 73 18 130/55 L 100 09/25/18 02:00 09/25/18 10:00 09/25/18 10:00 09/25/18 10:00 09/24/18 21:00 General: In no acute distress, lying comfortably in bed. Extremities: No pallor or icterus. No pedal edema. No palpable lymphadenopathy. CVS: S1, S2, regular, no gallop or murmur. Chest: good air entry bilaterally, clear Abdomen: Non-distended, non-tender, no palpable organomegaly. Neuro: Alert, oriented, non-focal. Labs: CBC, BMP 09/24/18 06:45 09/24/18 06:00 Assessment. Patient presenting with sevarl months cachexia, microcytic anemia, and gastric mass and associated adenopathy on CT scan, suggestive of locally advanced gastric cancer. Gastroscopy pending. Microcytic anemia due to iron deficiency - will replete iron stores intravenously while admitted. Will follow.
[2018-09-25] MEDS: IRON SUCROSE INJECTION 200 MG in SODIUM CHLORIDE 90 ML IVPB SCH (11:55)
--- NOTE | 2018-09-25 12:02 | PN ---
Physical Exam: SUBJECTIVE: Patient seen and examined Patient resting in bed NAD. afebrile hemodynamically stable, no acute events. tolerating full liquid diet. denies abd pain. denies n/v/d/c. OBJECTIVE: Vital Signs Period Temp Pulse Resp BP Sys/Dangelo Pulse Ox Last 24 Hr 97.6 F-98.4 F 71-84 18-20 129-159/6-73 100 GENERAL: The patient is awake, alert, and fully oriented, in no acute distress. HEAD: Normal with no signs of trauma. EYES: extraocular movements intact, sclera anicteric, conjunctiva clear. No ptosis. ENT: moist mucous membranes. NECK: supple. LUNGS: Breath sounds equal, clear to auscultation bilaterally, no wheezes, no crackles, no accessory muscle use. HEART: Regular rate and rhythm, S1, S2 ABDOMEN: Soft, nontender, nondistended, normoactive bowel sounds, no guarding, no rebound, +hepatomegaly EXTREMITIES: warm, well-perfused, no edema. NEUROLOGICAL: Cranial nerves II through XII grossly intact. Normal speech, gait not observed. PSYCH: Normal mood, normal affect. SKIN: Warm, dry Laboratory Results - last 24 hr 09/25/18 06:10 Ferritin 9.1 Active Medications Generic Name Dose Route Start Last Admin Trade Name Freq PRN Reason Stop Dose Admin Acetaminophen 650 mg 09/24/18 04:09 Tylenol - PO Q4H PRN PAIN LEVEL 1-5 Al Hydroxide/Mg Hydroxide 30 ml 09/24/18 04:08 Mylanta Oral Suspension - PO Q6H PRN DYSPEPSIA Enoxaparin Sodium 40 mg 09/24/18 10:00 09/25/18 10:32 Lovenox - SQ 40 mg DAILY LOLA Administration Iron Sucrose 200 mg/ Sodium 100 mls @ 100 mls/hr 09/25/18 10:00 09/25/18 11: 55 Chloride IVPB 09/27/18 10:59 100 mls/hr DAILY LOLA Administration Losartan Potassium 50 mg 09/24/18 10:00 09/25/18 10:31 Cozaar - PO 50 mg BID LOLA Administration Pantoprazole Sodium 40 mg 09/24/18 10:00 09/25/18 10:31 Protonix - PO 40 mg DAILY LOLA Administration ASSESSMENT/PLAN: This is an 82 yo M with no PMH, who presents due to abdominal pain x 1w. Abdominal pain gastric mass and associated adenopathy on CT scan suspicious for locally advanced gastric CA Microcytic anemia, likely Fe deficient HTN -pain resolved with mylanta, PPI -heme/onc and GI on case -endoscopy wednesday, npo after midnight -IV Fe -continue losartan Problem List - Problems (1) Cachexia Code(s): R64 - CACHEXIA (2) Metastatic cancer Code(s): C79.9 - SECONDARY MALIGNANT NEOPLASM OF UNSPECIFIED SITE (3) HTN (hypertension) Code(s): I10 - ESSENTIAL (PRIMARY) HYPERTENSION Visit type - Emergency Visit Emergency Visit: Yes ED Registration Date: 09/24/18 Care time: The patient presented to the Emergency Department on the above date and was hospitalized for further evaluation of their emergent condition. - New Patient This patient is new to me today: No - Critical Care Critical Care patient: No - Discharge Referral [facility]erred to [facility] No
--- NOTE | 2018-09-25 17:26 | PN ---
Teaching Attending Note Name of Resident: Rosa Elena Bueno ATTENDING PHYSICIAN STATEMENT I saw and evaluated the patient. I reviewed the resident's note and discussed the case with the resident. I agree with the resident's findings and plan as documented. SUBJECTIVE: Patient is comfortable with no acute distress. denies any pain at this. OBJECTIVE: Vital Signs Temperature 98.6 F 09/25/18 15:47 Pulse Rate 84 09/25/18 15:47 Respiratory Rate 18 09/25/18 15:47 Blood Pressure 144/58 L 09/25/18 15:47 O2 Sat by Pulse Oximetry (%) 100 09/24/18 21:00 GENERAL: The patient is awake, alert, and fully oriented, in no acute distress. HEAD: Normal with no signs of trauma. EYES: PERRL, extraocular movements intact, sclera anicteric, conjunctiva clear. ENT: Ears normal, oropharynx clear without exudates, moist mucous membranes. NECK: Trachea midline, full range of motion, supple. LUNGS: Breath sounds equal, clear to auscultation bilaterally, no wheezes, no crackles, no accessory muscle use. HEART: Regular rate and rhythm, S1, S2 without murmur, rub or gallop. ABDOMEN: Soft, nontender, nondistended, normoactive bowel sounds, no guarding, no rebound, no hepatosplenomegaly, no masses. EXTREMITIES: 2+ pulses, warm, well-perfused, no edema. NEUROLOGICAL: Cranial nerves II through XII grossly intact. Normal speech, gait not observed. PSYCH: Normal mood, normal affect. SKIN: Warm, dry, normal turgor, no rashes or lesions noted CBCD WBC 8.5 K/mm3 (4.0-10.0) 09/24/18 06:45 RBC 4.30 M/mm3 (4.00-5.60) 09/24/18 06:45 Hgb 9.2 GM/dL (11.7-16.9) L 09/24/18 06:45 Hct 29.5 % (35.4-49) L 09/24/18 06:45 MCV 68.7 fl (80-96) L 09/24/18 06:45 MCHC 31.1 g/dl (32.0-35.9) L 09/24/18 06:45 RDW 19.3 % (11.9-15.9) H 09/24/18 06:45 Plt Count 444 K/MM3 (134-434) H 09/24/18 06:45 MPV 7.0 fl (7.5-11.1) L 09/24/18 06:45 CMP Sodium 132 mmol/L (136-145) L 09/24/18 06:00 Potassium 4.8 mmol/L (3.5-5.1) 09/24/18 06:00 Chloride 99 mmol/L (98-107) 09/24/18 06:00 Carbon Dioxide 28 mmol/L (21-32) 09/24/18 06:00 Anion Gap 5 MMOL/L (8-16) L 09/24/18 06:00 BUN 9 mg/dL (7-18) 09/24/18 06:00 Creatinine 0.6 mg/dL (0.55-1.3) 09/24/18 06:00 Creat Clearance w eGFR 129.64 (>60) 09/24/18 06:00 Random Glucose 80 mg/dL (74-106) 09/24/18 06:00 Calcium 7.6 mg/dL (8.5-10.1) L 09/24/18 06:00 Total Bilirubin 0.2 mg/dL (0.2-1) 09/23/18 18:57 AST 20 U/L (15-37) 09/23/18 18:57 ALT 12 U/L (13-61) L 09/23/18 18:57 Alkaline Phosphatase 82 U/L (45-117) 09/23/18 18:57 Total Protein 6.0 g/dl (6.4-8.2) L 09/23/18 18:57 Albumin 2.6 g/dl (3.4-5.0) L 09/23/18 18:57 CARDIAC ENZYMES Creatine Kinase 41 U/L (26-308) 09/23/18 18:57 Troponin I < 0.02 ng/ml (0.00-0.05) 09/23/18 18:57 Current Medications Generic Name Dose Route Start Last Admin Trade Name Freq PRN Reason Stop Dose Admin Acetaminophen 650 mg 09/24/18 04:09 Tylenol - PO Q4H PRN PAIN LEVEL 1-5 Al Hydroxide/Mg Hydroxide 30 ml 09/24/18 04:08 Mylanta Oral Suspension - PO Q6H PRN DYSPEPSIA Enoxaparin Sodium 40 mg 09/24/18 10:00 09/25/18 10:32 Lovenox - SQ 40 mg DAILY LOLA Administration Iron Sucrose 200 mg/ Sodium 100 mls @ 100 mls/hr 09/25/18 10:00 09/25/18 11: 55 Chloride IVPB 09/27/18 10:59 100 mls/hr DAILY LOLA Administration Losartan Potassium 50 mg 09/24/18 10:00 09/25/18 10:31 Cozaar - PO 50 mg BID LOLA Administration Pantoprazole Sodium 40 mg 09/24/18 10:00 09/25/18 10:31 Protonix - PO 40 mg DAILY LOLA Administration Home Medications Medication Instructions Recorded Losartan Potassium [Cozaar -] 50 mg PO BID 09/24/18 US of the upper abdomen showed distended gallbladder filled with sludge without wall thickening, trace pericholecystic free fluid. Ct: thickened appearance of the distal esophagus and irregular thickening and enhancement of the gastric fundus and body concerning for malignancy. There is extensive gastrohepatic and retroperitoneal adenopathy in the upper abdomen concerning for malignant adenopathy. Perihepatic and perisplenic ascites with small amount of ascites in the pelvis. Multiple lytic lesiosn in the sacrum and pelvis the largest in the left iliac bone measuring 2cmconcerning for metastatic disease. Assessment and plan: Patient is an 82 year old man with PMHx of HTN who presents to the ER with a complaint of abdominal pain for 6 months. He arrived from [facility] 1 week ago and was scheduled to see a GI doctor today, but his pain got worse and was brought in to ED. for further care. As per patient, he is not aware of any diagnosis at [place], no one was able to tell him what's wrong with him. # Gastric mass with adenopathy on CT scan, suggestive of locally advanced gastric cancer. GI consult for EGD/colonoscopy , onc consult appreciated. # Microcytic anemia due to iron deficiency - will replete iron stores intravenously while admitted as per onco. #HTN continue home med. losartan 50mg bid DVT prophylaxis - Lovenox 40 mg SQ q 24 hours. Advance directives - Full code
[2018-09-25] MEDS ORDERED: PT OWN MED DRAWER 7, Y5N ONE (21:59)
[2018-09-26 05:08] LABS: SERUM IRON SATURATION 5 % (15-55); TOTAL IRON BINDING CAPACITY 227 ug/dL (250-450); UIBC 215 ug/dL (111-343)
[2018-09-26 07:25] LABS: ANION GAP 5 MMOL/L (8-16); BLOOD UREA NITROGEN 8 mg/dL (7-18); CALCIUM 7.7 mg/dL (8.5-10.1); CHLORIDE 99 mmol/L (98-107); CO2 28 mmol/L (21-32); CREATININE 0.6 mg/dL (0.55-1.3); GLUCOSE,RANDOM 82 mg/dL (74-106); MAGNESIUM 2.2 mg/dL (1.8-2.4); PHOSPHOROUS 3.5 mg/dL (2.5-4.9); POTASSIUM 4.2 mmol/L (3.5-5.1); SODIUM 131 mmol/L (136-145)
[2018-09-26] MEDS: PANTOPRAZOLE 40 MG TABLET (FP) PO SCH (09:43)
[2018-09-26] MEDS: LOSARTAN POTASSIUM 50 MG TABLET (FP) PO SCH ×2 (09:43→21:27)
[2018-09-26] MEDS ORDERED: PT OWN MED DRAWER 7, Y5N ONE (10:35)
[2018-09-26] MEDS: IRON SUCROSE INJECTION 200 MG in SODIUM CHLORIDE 90 ML IVPB SCH (10:38)
--- NOTE | 2018-09-26 10:40 | EKG ---
Test Reason : Blood Pressure : / mmHG Vent. Rate : 069 BPM Atrial Rate : 069 BPM P-R Int : 154 ms QRS Dur : 068 ms QT Int : 410 ms P-R-T Axes : 081 036 066 degrees QTc Int : 439 ms NORMAL SINUS RHYTHM VOLTAGE CRITERIA FOR LEFT VENTRICULAR HYPERTROPHY T WAVE ABNORMALITY, CONSIDER LATERAL ISCHEMIA ABNORMAL ECG NO PREVIOUS ECGS AVAILABLE Confirmed by VICTOR HUGO BRADSHAW MD ([id number]) on 09/26/2018 10:40:23 AM Referred By: Confirmed By:VICTOR HUGO BRADSHAW MD
--- NOTE | 2018-09-26 11:58 | PN ---
Progress Note (short form) - Note Progress Note: GI brief EGD report - see paper report in chart for details Circumferential mass in stomach extending from cardia to distal body, likely neoplasm, biopsied Normal antrum, biopsied for H. pylori Normal esophagus and duodenum Recommend CT chest for staging Oncology consult Surgical consult Await pathology - asked to marino specimen
--- NOTE | 2018-09-26 14:35 | PN ---
Physical Exam: SUBJECTIVE: Patient seen and examined this AM. No new complaints. For endoscopy this AM. No acute overnight events as per nursing. OBJECTIVE: Vital Signs Period Temp Pulse Resp BP Sys/Dangelo Pulse Ox Last 24 Hr 98.0 F-99 F 72-93 18-20 131-159/51-74 97-100 GENERAL: A&Ox3, NAD HEAD: NCAT EYES: PERRL, EOMI ENT: Moist mucous membranes NECK: Supple LUNGS: Diminished breath sound at the bases, no wheezes, no crackles HEART: Regular rate and rhythm, S1, S2 without murmur ABDOMEN: Soft, Mild diffuse tenderness to palpation, nondistended, + bowel sounds EXTREMITIES: No edema. NEUROLOGICAL: Cranial nerves II through XII grossly intact. SKIN: Warm, dry Laboratory Results - last 24 hr 09/25/18 09/26/18 06:10 06:10 Sodium 131 L Potassium 4.2 Chloride 99 Carbon Dioxide 28 Anion Gap 5 L BUN 8 Creatinine 0.6 Creat Clearance w eGFR 129.64 Random Glucose 82 Calcium 7.7 L Phosphorus 3.5 Magnesium 2.2 Iron 12 L TIBC 227 L Iron Saturation 5 L Active Medications Acetaminophen (Tylenol -) 650 mg PO Q4H PRN PRN Reason: PAIN LEVEL 1-5 Al Hydroxide/Mg Hydroxide (Mylanta Oral Suspension -) 30 ml PO Q6H PRN PRN Reason: DYSPEPSIA Enoxaparin Sodium (Lovenox -) 40 mg SQ DAILY [facility] Last Admin: 09/25/18 10:32 Dose: 40 mg Iron Sucrose 200 mg/ Sodium (Chloride) 100 mls @ 100 mls/hr IVPB DAILY [facility] Stop: 09/27/18 10:59 Last Admin: 09/26/18 10:38 Dose: 100 mls/hr Losartan Potassium (Cozaar -) 50 mg PO BID [facility] Last Admin: 09/26/18 09:43 Dose: 50 mg Pantoprazole Sodium (Protonix -) 40 mg PO DAILY [facility] Last Admin: 09/26/18 09:43 Dose: 40 mg Ambulatory Orders Losartan Potassium [Cozaar -] 50 mg PO BID 09/24/18 IMAGING: -Abdomen US: Adequately distended gallbladder that is partially filled with a sludge and without wall thickening. There is a trace of pericholecystic free fluid. There is also minimal free fluid/ascites in the right upper quadrant. The rest of the examination appears unremarkable. -CT A/P with contrast: Gastric findings are noted suggestive of neoplastic disease - ? lymphoma. Extensive upper abdominal lymphadenopathy is seen. A small amount of ascites is noted within the abdomen and pelvis. There is a possible nonexpansile osteolytic lesion within the left iliac bone. Additional evaluation utilizing MRI or whole-body scintigraphy may be performed. Findings are seen within the partially imaged lower chest as discussed above. -CXR: Ill-defined 1.1 cm right upper lobe nodular opacity requiring further evaluation with nonemergent, noncontrast chest CT. -EKG: NSR, VR 69, QTc 439 ASSESSMENT/PLAN: 82 y/o man, who recently arrived from [facility], with PMHx of HTN presented with worsening abdominal pain for 6 months. #Abdominal pain -EGD this AM revealed circumferential mass in stomach extending from cardia to distal body, likely neoplasm, biopsied -Await pathology report -CT Chest for staging -General Surgery (Dr. Azul) consulted -GI (Dr. Villasenor) consulted, Appreciate rec's -Oncology (Dr. Sequeira) consulted, Appreciate rec's -Continue Al Hydroxide/Mg Hydroxide Suspension 30ml Q6H PRN, Pantoprazole 40mg daily #Microcytic Anemia -Due to Iron Deficiency -Continue Iron Sucrose 200 mg IV Daily #HTN -Losartan 50mg PO BID #FEN -No standing fluids -Lytes WNL -Full Liquid diet #PPx -DVT: SCDs---Chemical AC held given recent bx and possible upcoming surgical intervention Visit type - Emergency Visit Emergency Visit: Yes ED Registration Date: 09/24/18 Care time: The patient presented to the Emergency Department on the above date and was hospitalized for further evaluation of their emergent condition. - New Patient This patient is new to me today: Yes Date on this admission: 09/26/18 - Critical Care Critical Care patient: No - Discharge Referral Referred to [facility] Med P.C.: No
--- NOTE | 2018-09-26 15:00 | PN ---
Physical Exam: SUBJECTIVE: Patient seen and examined at bedside. No new complaints. Had EGD today. OBJECTIVE: Vital Signs Period Temp Pulse Resp BP Sys/Dangelo Pulse Ox Last 24 Hr 98.0 F-99 F 72-93 18-20 131-159/51-74 97-100 GENERAL: The patient is awake, alert, and fully oriented, in no acute distress. HEAD: Normal with no signs of trauma. EYES: extraocular movements intact ENT: Ears normal, nares patent NECK: Trachea midline LUNGS: Decreased breath sounds at bases HEART: Regular rate and rhythm, S1, S2 ABDOMEN: Soft, mildly tender to palpation in abdomen, normoactive BS. EXTREMITIES: warm, well-perfused, no edema. NEUROLOGICAL: Cranial nerves II through XII grossly intact. Normal speech, gait not observed. PSYCH: Normal mood, normal affect. SKIN: Warm, dry Laboratory Results - last 24 hr 09/25/18 09/26/18 06:10 06:10 Sodium 131 L Potassium 4.2 Chloride 99 Carbon Dioxide 28 Anion Gap 5 L BUN 8 Creatinine 0.6 Creat Clearance w eGFR 129.64 Random Glucose 82 Calcium 7.7 L Phosphorus 3.5 Magnesium 2.2 Iron 12 L TIBC 227 L Iron Saturation 5 L Active Medications Generic Name Dose Route Start Last Admin Trade Name Freq PRN Reason Stop Dose Admin Acetaminophen 650 mg 09/24/18 04:09 Tylenol - PO Q4H PRN PAIN LEVEL 1-5 Al Hydroxide/Mg Hydroxide 30 ml 09/24/18 04:08 Mylanta Oral Suspension - PO Q6H PRN DYSPEPSIA Iron Sucrose 200 mg/ Sodium 100 mls @ 100 mls/hr 09/25/18 10:00 09/26/18 10: 38 Chloride IVPB 09/27/18 10:59 100 mls/hr DAILY [facility] Administration Losartan Potassium 50 mg 09/24/18 10:00 09/26/18 09:43 Cozaar - PO 50 mg BID [facility] Administration Pantoprazole Sodium 40 mg 09/24/18 10:00 09/26/18 09:43 Protonix - PO 40 mg DAILY [facility] Administration ASSESSMENT/PLAN: 82 y/o M w/PMH of HTN (and recently here from [facility]) presented to the ER with worsening abd pain and cachexia [id number] and found to have mass in stomach on EGD. -ABdominal pain -Pts EGD this AM revealed a circumferential mass in stomach extending from cardia to distal body. -Sent for pathology -Awaiting pathology results -Surgery consulted -f/u CT chest -Microcytic Anemia -iron def anemia -c/w iron supp Visit type - Emergency Visit Emergency Visit: Yes ED Registration Date: 09/24/18 Care time: The patient presented to the Emergency Department on the above date and was hospitalized for further evaluation of their emergent condition. - New Patient This patient is new to me today: Yes Date on this admission: 09/26/18 - Critical Care Critical Care patient: No
--- NOTE | 2018-09-26 16:13 | CONSULT ---
Consult Consult Specialty:: General Surgery Referred by:: Eloise Crump Reason for Consultation:: gastric mass, likely cancer - History of Present Illness Chief Complaint: RUQ pain, weight loss History of Present Illness: Conversation with the patient was held with assistance of Gambian telephone interpreters #[phone] and [phone]. 82yo [place] M smoker with HTN, h/o shoulder surgeries, admitted to medicine a couple of days ago with RUQ pain over the last 6 months (since January), associated with ~25 pound weight loss and a feeling of food sticking in his throat when he swallows solids. No N/V, no diarrhea or constipation. He denies dizziness or weakness. He indicates he went to a lot of doctors in [facility], and was given "some medicine," but it didn't help, and eventually he [place] the [place] to find help. He came to [place] about a week ago Wednesday, and has been staying with his daughter. Workup here has included labs significant for iron-deficiency anemia, albumin 2.6, and CT showing thickening of stomach from GE junction to mid-body, with lymphadenopathy and a little ascites in the upper abdomen and pelvis. No bowel obstruction noted. There are also a couple of small lung nodules and focal distal airway findings. CXR shows an ill-defined 1.1cm RUL nodule as well. Chest CT is pending. GI performed endoscopy today and found nearly circumferential mass extending from cardia to distal body; biopsies were taken. Oncology and surgery have been asked to assess. - History Source History Provided By: Patient Limitations to Obtaining History: Language Barrier (Gambian - telephone junior project manager used #[phone] and #[phone]) - Past Medical History Cardio/Vascular: Yes: HTN Musculoskeletal: Yes: Osteoarthritis - Past Surgical History Additional Surgical History: left eye surgery (?cataract), bilateral shoulder surgery - Alcohol/Substance Use Hx Alcohol Use: No History of Substance Use: reports: None - Smoking History Smoking history: Current every day smoker (smoked 7 cigs/day in [facility], now only 2 this last week living with daughter here) Have you smoked in the past 12 months: Yes Aproximately how many cigarettes per day: 2 (used to be heavier, 1 PPD starting age 14) - Social History Usual Living Arrangement: With Child (daughter here in [place], since arriving last week) ADL: Independent Place of : Other ([place]) [place]ame to [place]year[place] 2018 History of Recent Travel: Yes (arrived from [facility] last Wednesday) Home Medications - Allergies Allergies/Adverse Reactions: Allergies Allergy/AdvReac Type Severity Reaction Status Date / Time No Known Allergies Allergy Verified 09/23/18 17:35 - Home Medications Home Medications: Ambulatory Orders Losartan Potassium [Cozaar -] 50 mg PO BID 09/24/18 Family Disease History - Family Disease History Family Disease History: Diabetes: Brother, Other: Father ( at 99) Review of Systems Unable to obtain ROS, reason: limited, Gambian - Review of Systems Constitutional: reports: Unintentional Wgt. Loss (25 lbs since January, when pain and swallowing problems started). denies: Chills, Fever, Loss of Appetite , Weakness Eyes: denies: Recent Change in Vision HENT: reports: Difficult Swallowing (has had feeling of food sticking when swallowing, like "a knot" in his throat). denies: Throat Pain Neck: denies: Pain on Movement, Stiffness Cardiovascular: denies: Chest Pain, Palpitations Respiratory: denies: Cough, SOB Gastrointestinal: reports: Abdominal Pain (with hpi). denies: Constipation, Diarrhea, Nausea, Vomiting Genitourinary: denies: Burning, Dysuria Musculoskeletal: denies: Joint Pain, Joint Swelling Integumentary: denies: Change in Color, Rash Neurological: denies: Dizziness, Headache, Unsteady Gait Endocrine: reports: Unexplained Weight Loss (as above) Physical Exam Vital Signs: Vital Signs Temperature 98.0 F 09/26/18 11:46 Pulse Rate 72 09/26/18 12:22 Respiratory Rate 18 09/26/18 12:22 Blood Pressure 152/73 09/26/18 12:22 O2 Sat by Pulse Oximetry (%) 100 09/26/18 12:22 Constitutional: Yes: No Distress, Calm, Cachectic (sunken skin neck/clavicles), Thin Eyes: Yes: Conjunctiva Clear, EOM Intact HENT: Yes: Atraumatic, Normocephalic Neck: Yes: Supple, Trachea Midline. No: Lymphadenopathy, Tenderness Cardiovascular: Yes: Regular Rate and Rhythm Respiratory: Yes: Regular, CTA Bilaterally Gastrointestinal: Yes: Normal Bowel Sounds, Soft, Tenderness (mild RUQ, no olive/ guarding). No: Distention, Palpable Mass ...Rectal Exam: Yes: Deferred Renal/: No: CVA Tenderness - Left, CVA Tenderness - Right Musculoskeletal: No: Joint Stiffness, Joint Swelling Extremities: No: Cool, Cyanosis Edema: No Peripheral Pulses WNL: Yes Integumentary: No: Jaundice, Rash Neurological: Yes: Alert, Oriented. No: Unsteady Gait Labs: CBC, BMP 09/24/18 06:45 09/26/18 06:10 CMP Sodium 131 mmol/L (136-145) L 09/26/18 06:10 Potassium 4.2 mmol/L (3.5-5.1) 09/26/18 06:10 Chloride 99 mmol/L (98-107) 09/26/18 06:10 Carbon Dioxide 28 mmol/L (21-32) 09/26/18 06:10 Anion Gap 5 MMOL/L (8-16) L 09/26/18 06:10 BUN 8 mg/dL (7-18) 09/26/18 06:10 Creatinine 0.6 mg/dL (0.55-1.3) 09/26/18 06:10 Creat Clearance w eGFR 129.64 (>60) 09/26/18 06:10 Random Glucose 82 mg/dL (74-106) 09/26/18 06:10 Calcium 7.7 mg/dL (8.5-10.1) L 09/26/18 06:10 Phosphorus 3.5 mg/dL (2.5-4.9) 09/26/18 06:10 Magnesium 2.2 mg/dL (1.8-2.4) 09/26/18 06:10 Iron 12 ug/dL (38-169) L 09/25/18 06:10 TIBC 227 ug/dL (250-450) L 09/25/18 06:10 Iron Saturation 5 % (15-55) L 09/25/18 06:10 Ferritin 9.1 ng/ml (8-388) 09/25/18 06:10 Total Bilirubin 0.2 mg/dL (0.2-1) 09/23/18 18:57 AST 20 U/L (15-37) 09/23/18 18:57 ALT 12 U/L (13-61) L 09/23/18 18:57 Alkaline Phosphatase 82 U/L (45-117) 09/23/18 18:57 Creatine Kinase 41 U/L (26-308) 09/23/18 18:57 Troponin I < 0.02 ng/ml (0.00-0.05) 09/23/18 18:57 Total Protein 6.0 g/dl (6.4-8.2) L 09/23/18 18:57 Albumin 2.6 g/dl (3.4-5.0) L 09/23/18 18:57 Lipase 281 U/L (73-393) 09/23/18 18:57 INR, PTT INR 1.18 (0.83-1.09) H 04 18:57 Imaging - Results Chest X-ray: Report Reviewed (1.1cm ill defined RUL nodule) Cat Scan: Pending (CT chest pending), Report Reviewed (also enlarged nodes, little pelvic fluid, perihepatic and perisplenic ascites, few small nodules in lungs), Image Reviewed (images reviewed - extensive proximal stomach thickening , from GE junction to at least senior living distal, no bowel obstruction) Problem List - Problems (1) Gastric neoplasm Assessment/Plan: Pt with large gastric mass, most likely malignant, but pathology pending Agree with staging workup, though some studies may be done outpatient. There is no obstruction or evidence of active bleeding, pt now tolerating full liquid diet. Neither I nor my partner do gastric cancer surgery. The patient will need referral to a surgical oncologist, which can be done outpatient, as well as to f /u with medical oncology once biopsies are back. Thank you for the opportunity to participate in the care of this patient. Will sign off. Please call if I can be of further assistance. Discussed with Dr. Sona Crump of primary team. Code(s): D49.0 - NEOPLASM OF UNSPECIFIED BEHAVIOR OF DIGESTIVE SYSTEM (2) RUQ pain Code(s): R10.11 - RIGHT UPPER QUADRANT PAIN (3) Difficulty in swallowing Code(s): R13.10 - DYSPHAGIA, UNSPECIFIED Qualifiers: Dysphagia type: unspecified Qualified Code(s): R13.10 - Dysphagia, unspecified (4) Unintentional weight loss of 10% body weight within 6 months Code(s): R63.4 - ABNORMAL WEIGHT LOSS (5) HTN (hypertension) Code(s): I10 - ESSENTIAL (PRIMARY) HYPERTENSION Qualifiers: Hypertension type: essential hypertension Qualified Code(s): I10 - Essential (primary) hypertension
--- NOTE | 2018-09-26 17:44 | PN ---
Progress Note (short form) - Note Progress Note: Patient seen and examined Denies any complaints AFVSS Cor: RSR, No murmurs, No gallops Lungs: Clear to P&A Abd: Soft, Normal bowel sounds, No organomegaly Ext:No significant edema Labs/Meds reviewed A/P Patient presenting with sevarl months cachexia, microcytic anemia, and gastric mass and associated adenopathy on CT scan, suggestive of locally advanced gastric cancer. Microcytic anemia due to iron deficiency - will replete iron stores Circumferential mass in stomach extending from cardia to distal body, likely neoplasm, biopsied check chest CT Add her2/TB/PDL1 to pathology specimen
--- NOTE | 2018-09-26 17:58 | PN ---
Teaching Attending Note Name of Resident: Eloise Crump ATTENDING PHYSICIAN STATEMENT I saw and evaluated the patient. I reviewed the resident's note and discussed the case with the resident. I agree with the resident's findings and plan as documented. SUBJECTIVE: Patient is comfortable s/p EGD OBJECTIVE: Vital Signs Temperature 98.0 F 09/26/18 11:46 Pulse Rate 72 09/26/18 12:22 Respiratory Rate 18 09/26/18 12:22 Blood Pressure 152/73 09/26/18 12:22 O2 Sat by Pulse Oximetry (%) 100 09/26/18 12:22 GENERAL: The patient is awake, alert, and fully oriented, in no acute distress. HEAD: Normal with no signs of trauma. EYES: PERRL, extraocular movements intact, sclera anicteric, conjunctiva clear. ENT: Ears normal, oropharynx clear without exudates, moist mucous membranes. NECK: Trachea midline, full range of motion, supple. LUNGS: Breath sounds equal, clear to auscultation bilaterally, no wheezes, no crackles, no accessory muscle use. HEART: Regular rate and rhythm, S1, S2 without murmur, rub or gallop. ABDOMEN: Soft, nontender, nondistended, normoactive bowel sounds, no guarding, no rebound, no hepatosplenomegaly, no masses. EXTREMITIES: 2+ pulses, warm, well-perfused, no edema. NEUROLOGICAL: Cranial nerves II through XII grossly intact. Normal speech, gait not observed. PSYCH: Normal mood, normal affect. SKIN: Warm, dry, normal turgor, no rashes or lesions noted CBCD WBC 8.5 K/mm3 (4.0-10.0) 09/24/18 06:45 RBC 4.30 M/mm3 (4.00-5.60) 09/24/18 06:45 Hgb 9.2 GM/dL (11.7-16.9) L 09/24/18 06:45 Hct 29.5 % (35.4-49) L 09/24/18 06:45 MCV 68.7 fl (80-96) L 09/24/18 06:45 MCHC 31.1 g/dl (32.0-35.9) L 09/24/18 06:45 RDW 19.3 % (11.9-15.9) H 09/24/18 06:45 Plt Count 444 K/MM3 (134-434) H 09/24/18 06:45 MPV 7.0 fl (7.5-11.1) L 09/24/18 06:45 CMP Sodium 131 mmol/L (136-145) L 09/26/18 06:10 Potassium 4.2 mmol/L (3.5-5.1) 09/26/18 06:10 Chloride 99 mmol/L (98-107) 09/26/18 06:10 Carbon Dioxide 28 mmol/L (21-32) 09/26/18 06:10 Anion Gap 5 MMOL/L (8-16) L 09/26/18 06:10 BUN 8 mg/dL (7-18) 09/26/18 06:10 Creatinine 0.6 mg/dL (0.55-1.3) 09/26/18 06:10 Creat Clearance w eGFR 129.64 (>60) 09/26/18 06:10 Random Glucose 82 mg/dL (74-106) 09/26/18 06:10 Calcium 7.7 mg/dL (8.5-10.1) L 09/26/18 06:10 Total Bilirubin 0.2 mg/dL (0.2-1) 09/23/18 18:57 AST 20 U/L (15-37) 09/23/18 18:57 ALT 12 U/L (13-61) L 09/23/18 18:57 Alkaline Phosphatase 82 U/L (45-117) 09/23/18 18:57 Total Protein 6.0 g/dl (6.4-8.2) L 09/23/18 18:57 Albumin 2.6 g/dl (3.4-5.0) L 09/23/18 18:57 CARDIAC ENZYMES Creatine Kinase 41 U/L (26-308) 09/23/18 18:57 Troponin I < 0.02 ng/ml (0.00-0.05) 09/23/18 18:57 Current Medications Generic Name Dose Route Start Last Admin Trade Name Freq PRN Reason Stop Dose Admin Acetaminophen 650 mg 09/24/18 04:09 Tylenol - PO Q4H PRN PAIN LEVEL 1-5 Al Hydroxide/Mg Hydroxide 30 ml 09/24/18 04:08 Mylanta Oral Suspension - PO Q6H PRN DYSPEPSIA Iron Sucrose 200 mg/ Sodium 100 mls @ 100 mls/hr 09/25/18 10:00 09/26/18 10: 38 Chloride IVPB 09/27/18 10:59 100 mls/hr DAILY [facility] Administration Losartan Potassium 50 mg 09/24/18 10:00 09/26/18 09:43 Cozaar - PO 50 mg BID [facility] Administration Pantoprazole Sodium 40 mg 09/24/18 10:00 09/26/18 09:43 Protonix - PO 40 mg DAILY [facility] Administration Home Medications Medication Instructions Recorded Losartan Potassium [Cozaar -] 50 mg PO BID 09/24/18 US of the upper abdomen showed distended gallbladder filled with sludge without wall thickening, trace pericholecystic free fluid. Ct: thickened appearance of the distal esophagus and irregular thickening and enhancement of the gastric fundus and body concerning for malignancy. There is extensive gastrohepatic and retroperitoneal adenopathy in the upper abdomen concerning for malignant adenopathy. Perihepatic and perisplenic ascites with small amount of ascites in the pelvis. Multiple lytic lesiosn in the sacrum and pelvis the largest in the left iliac bone measuring 2cmconcerning for metastatic disease. Assessment and plan: Patient is an 82 year old man with PMHx of HTN who presents to the ER with a complaint of abdominal pain for 6 months. He arrived from [facility] 1 week ago and was scheduled to see a GI doctor today, but his pain got worse and was brought in to ED. for further care. As per patient, he is not aware of any diagnosis at [facility], no one was able to tell him what's wrong with him. # s/p EGD as per GI findings Circumferential mass in stomach extending from cardia to distal body, likely neoplasm, biopsied for h. pylori and was asked for [place] junction specimen . onc consult appreciated. need CT chest for staging. # Microcytic anemia due to iron deficiency - will replete iron stores intravenously while admitted as per onco. #HTN continue home med. losartan 50mg bid DVT prophylaxis - Lovenox 40 mg SQ q 24 hours. Advance directives - Full code Surgical consult Await pathology result
[2018-09-27 08:15] LABS: HEMATOCRIT 30.2 % (35.4-49); HEMOGLOBIN 9.5 GM/dL (11.7-16.9); MCH 21.7 pg (25.7-33.7); MCHC 31.3 g/dl (32.0-35.9); MEAN CELL VOLUME 69.1 fl (80-96); MEAN PLT VOLUME 7.1 fl (7.5-11.1); PLATELET COUNT 438 K/MM3 (134-434); RBC 4.38 M/mm3 (4.00-5.60); RDW 19.5 % (11.9-15.9)
[2018-09-27 08:35] LABS: ALBUMIN 2.4 g/dl (3.4-5.0); ALK PHOS 195 U/L (45-117); ANION GAP 6 MMOL/L (8-16); BLOOD UREA NITROGEN 11 mg/dL (7-18); CALCIUM 7.6 mg/dL (8.5-10.1); CHLORIDE 100 mmol/L (98-107); CO2 25 mmol/L (21-32); CREATININE 0.7 mg/dL (0.55-1.3); GLUCOSE,RANDOM 162 mg/dL (74-106); MAGNESIUM 2.2 mg/dL (1.8-2.4); POTASSIUM 4.2 mmol/L (3.5-5.1); SGOT/AST 26 U/L (15-37); SGPT/ALT 21 U/L (13-61); SODIUM 131 mmol/L (136-145); TOT PROT 5.9 g/dl (6.4-8.2)
[2018-09-27] MEDS: IRON SUCROSE INJECTION 200 MG in SODIUM CHLORIDE 90 ML IVPB SCH (09:25)
[2018-09-27] MEDS: PANTOPRAZOLE 40 MG TABLET (FP) PO SCH (09:25)
[2018-09-27] MEDS: LOSARTAN POTASSIUM 50 MG TABLET (FP) PO SCH ×2 (09:25→21:56)
[2018-09-27] MEDS ORDERED: SODIUM CHLORIDE 1,000 ML IV SCH ×3 (10:15→20:52)
[2018-09-27 13:53] LABS: ANISOCYTOSIS 1+; MACROCYTOSIS 0; OVALOCYTE 1+; PLATELET ESTIMATE NORMAL; TARGET CELLS 2+; TEAR DROP CELLS 1+
--- NOTE | 2018-09-27 13:54 | PN ---
Physical Exam: SUBJECTIVE: Patient seen and examined this AM. No new complaints. No acute overnight events as per nursing. OBJECTIVE: Vital Signs Period Temp Pulse Resp BP Sys/Dangelo Pulse Ox Last 24 Hr 98.0 F-99 F 81-83 18-18 134-142/58-66 96 GENERAL: A&Ox3, NAD HEAD: NCAT EYES: PERRL, EOMI ENT: Moist mucous membranes NECK: Supple LUNGS: Diminished breath sound at the bases, no wheezes, no crackles HEART: Regular rate and rhythm, S1, S2 without murmur ABDOMEN: Soft, Mild RUQ tenderness to palpation, nondistended, + bowel sounds EXTREMITIES: No edema. NEUROLOGICAL: Cranial nerves II through XII grossly intact. SKIN: Warm, dry Laboratory Results - last 24 hr 09/27/18 09/27/18 07:30 07:30 WBC 7.0 RBC 4.38 Hgb 9.5 L Hct 30.2 L MCV 69.1 L MCH 21.7 L MCHC 31.3 L RDW 19.5 H Plt Count 438 H MPV 7.1 L Neutrophils % No Result Required. Lymphocytes % No Result Required. Nucleated RBC % 0 Sodium 131 L Potassium 4.2 Chloride 100 Carbon Dioxide 25 Anion Gap 6 L BUN 11 Creatinine 0.7 Creat Clearance w eGFR 108.51 Random Glucose 162 H Calcium 7.6 L Phosphorus 3.0 Magnesium 2.2 Total Bilirubin 1.0 AST 26 ALT 21 Alkaline Phosphatase 195 H Total Protein 5.9 L Albumin 2.4 L Active Medications Acetaminophen (Tylenol -) 650 mg PO Q4H PRN PRN Reason: PAIN LEVEL 1-5 Al Hydroxide/Mg Hydroxide (Mylanta Oral Suspension -) 30 ml PO Q6H PRN PRN Reason: DYSPEPSIA Docusate Sodium (Colace -) 100 mg PO TID [facility] Enoxaparin Sodium (Lovenox -) 40 mg SQ DAILY [facility] Ferrous Sulfate (Feosol -) 325 mg PO DAILY [facility] Sodium Chloride (Normal Saline -) 1,000 mls @ 100 mls/hr IV ASDIR [facility] Losartan Potassium (Cozaar -) 50 mg PO BID [facility] Last Admin: 09/27/18 09:25 Dose: 50 mg Pantoprazole Sodium (Protonix -) 40 mg PO DAILY [facility] Last Admin: 09/27/18 09:25 Dose: 40 mg Senna (Senna -) 1 tab PO BID [facility] IMAGING: -Abdomen US: Adequately distended gallbladder that is partially filled with a sludge and without wall thickening. There is a trace of pericholecystic free fluid. There is also minimal free fluid/ascites in the right upper quadrant. The rest of the examination appears unremarkable. -CT A/P with contrast: Gastric findings are noted suggestive of neoplastic disease - ? lymphoma. Extensive upper abdominal lymphadenopathy is seen. A small amount of ascites is noted within the abdomen and pelvis. There is a possible nonexpansile osteolytic lesion within the left iliac bone. Additional evaluation utilizing MRI or whole-body scintigraphy may be performed. Findings are seen within the partially imaged lower chest as discussed above. -CXR: Ill-defined 1.1 cm right upper lobe nodular opacity requiring further evaluation with nonemergent, noncontrast chest CT. -EKG: NSR, VR 69, QTc 439 -Chest CT W/WO Contrast: Moderately severe COPD. Multiple pulmonary nodules strongly suspicious for metastatic disease. Extensive mediastinal and bilateral hilar lymphadenopathy. Please see above discussion. ASSESSMENT/PLAN: 82 y/o man, who recently arrived from [facility], with PMHx of HTN presented with worsening abdominal pain for 6 months. #Abdominal pain -Will discuss with Oncology the appropriate surgical oncologist follow up -Await pathology report of biopsied stomach mass -CT Chest noted above suspicious for metastatic disease -GI (Dr. Villasenor) consulted, Appreciate rec's -Oncology (Dr. Sequeira) consulted, Appreciate rec's -Continue Al Hydroxide/Mg Hydroxide Suspension 30ml Q6H PRN, Pantoprazole 40mg daily #Iron Deficiency Anemia -Continue Ferrous sulfate 325mg #HTN -Losartan 50mg PO BID #Constipation -Colace, Senna #FEN -No standing fluids -Lytes WNL -Full Liquid diet #PPx -DVT: Lovenox Visit type - Emergency Visit Emergency Visit: Yes ED Registration Date: 09/24/18 Care time: The patient presented to the Emergency Department on the above date and was hospitalized for further evaluation of their emergent condition. - New Patient This patient is new to me today: No - Critical Care Critical Care patient: No - Discharge Referral Referred to [facility] Med [facility] No
--- NOTE | 2018-09-27 14:04 | PATH ---
Surgical Pathology Report Patient Name: JONATHAN BEAULIEU [facility]. Rec. #: [id number] /Age/Gender: 1935 (Age: 82) / M Account: [id number] Location: [address] [place] [address] Taken: 09/24/2018 Received: 09/26/2018 Reported: 09/27/2018 Physicians: MD Francia Sotelo M.D. Smitha Mellacheruvu, M.D. Specimen(s) Received A: GASTRIC BODY TUMOR B: STOMACH Clinical History Dysphagia, weight loss Postoperative diagnosis: Gastric body tumor Final Diagnosis A. GASTRIC BODY TUMOR, BIOPSY: ADENOCARCINOMA, POORLY DIFFERENTIATED. GASTRIC BODY MUCOSA WITH MODERATE TO SEVERE CHRONIC ACTIVE GASTRITIS AND FOCAL INTESTINAL METAPLASIA. IMMUNOHISTOCHEMICAL STAIN FOR H. PYLORI IS NEGATIVE. B. STOMACH, BIOPSY: ADENOCARCINOMA, POORLY DIFFERENTIATED, SMALL FRAGMENT. GASTRIC BODY MUCOSA WITH MODERATE CHRONIC ACTIVE GASTRITIS AND INTESTINAL METAPLASIA. IMMUNOHISTOCHEMICAL STAIN FOR H. PYLORI IS NEGATIVE. Comment: Part B, Immunohistochemical stain performed and interpreted at [facility] for AE1/3 highlights the carcinoma present in a small fragment. PDL-1, Her2 and MMR studies pending. Results will be reported separately. Case seen in intradepartmental review with consensus on diagnosis. Findings discussed with Dr. Guerrero. Electronically Signed Karissa Khalil M.D. Addendum Reported: 09/30/2018 Addendum Diagnosis PD-L1 performed and reported by [facility] [place] shows the following: Marker Combined Positive Score Interpretation Description PD-L1 Gastric (KEYTRUDA) >1 Expression Programmed Ligand 1 (PD-L1), Clone 22C3 pharmDx(tm) kit for KEYTRUDA in gastic and gastroesophageal adenocarcinoma Reference Range: CPS = Combined Positive Score = 100 x (PD-L1 reactive tumor cells + tumor-associated lymphocytes = macrophages) / (total number of viable tumor cells) CPS < 1 = No Expression CPA > 1 = Expression See [facility] report (Specimen #: [id number]) for additional details. Karissa Khalil M.D. Addendum Reported: 10/05/2018 Addendum Diagnosis MISMATCH REPAIR PROTEIN ANALYSIS performed and interpreted at [place], [place] shows the following: INTERPRETATION: No loss of nuclear expression of MMR proteins: low probability of microsatellite instability-high (MSI-H). HER2 IHC and FISH Analysis performed and interpreted at [place], [place] shows the following: Marker Result Interpretation HER2 IHC 2+ Equivocal HER2/CEP17 4.8 Positive FINAL HER2 Interpretation Positive See [facility] (Specimen #: [id number]) for additional details. Thai Mahajan M.D. Gross Description A. Received in formalin, labeled "biopsy gastric body tumor" are 8 perez, irregular portions of soft tissue ranging from 0.1-0.4 cm. in greatest dimension. The specimens are submitted in toto in one cassette. B. Received in formalin, labeled "biopsy stomach" are 6 perez, irregular portions of soft tissue ranging from 0.1-0.5 cm. in greatest dimension. The specimens are submitted in toto in one cassette. 09/26/2018 saudi09/26/2018
[2018-09-27] MEDS: ENOXAPARIN NA (PORCINE) 40 MG/0.4 ML DISP.SYRIN SQ SCH (15:33)
[2018-09-27] MEDS: FERROUS SO4 325 MG TABLET (FP) PO SCH (15:34)
[2018-09-27] MEDS: SENNOSIDES 8.6MG TABLET (FP) PO SCH ×2 (15:34→21:56)
[2018-09-27] MEDS: DOCUSATE SODIUM 100 MG CAPSULE (FP) PO SCH ×2 (15:34→21:56)
--- NOTE | 2018-09-27 20:43 | PN ---
Teaching Attending Note Name of Resident: Yashira Khan ATTENDING PHYSICIAN STATEMENT I saw and evaluated the patient. I reviewed the resident's note and discussed the case with the resident. I agree with the resident's findings and plan as documented. SUBJECTIVE: Patient is comfortable with no new events. OBJECTIVE: Vital Signs Temperature 98.2 F 09/27/18 14:15 Pulse Rate 82 09/27/18 16:54 Respiratory Rate 20 09/27/18 14:15 Blood Pressure 170/90 09/27/18 16:54 O2 Sat by Pulse Oximetry (%) 96 09/26/18 21:00 GENERAL: The patient is awake, alert, and fully oriented, in no acute distress. HEAD: Normal with no signs of trauma. EYES: PERRL, extraocular movements intact, sclera anicteric, conjunctiva clear. ENT: Ears normal, oropharynx clear without exudates, moist mucous membranes. NECK: Trachea midline, full range of motion, supple. LUNGS: Breath sounds equal, clear to auscultation bilaterally, no wheezes, no crackles, no accessory muscle use. HEART: Regular rate and rhythm, S1, S2 without murmur, rub or gallop. ABDOMEN: Soft, nontender, nondistended, normoactive bowel sounds, no guarding, no rebound, no hepatosplenomegaly, no masses. EXTREMITIES: 2+ pulses, warm, well-perfused, no edema. NEUROLOGICAL: Cranial nerves II through XII grossly intact. Normal speech, gait not observed. PSYCH: Normal mood, normal affect. SKIN: Warm, dry, normal turgor, no rashes or lesions noted CBCD WBC 7.0 K/mm3 (4.0-10.0) 09/27/18 07:30 RBC 4.38 M/mm3 (4.00-5.60) 09/27/18 07:30 Hgb 9.5 GM/dL (11.7-16.9) L 09/27/18 07:30 Hct 30.2 % (35.4-49) L 09/27/18 07:30 MCV 69.1 fl (80-96) L 09/27/18 07:30 MCHC 31.3 g/dl (32.0-35.9) L 09/27/18 07:30 RDW 19.5 % (11.9-15.9) H 09/27/18 07:30 Plt Count 438 K/MM3 (134-434) H 09/27/18 07:30 MPV 7.1 fl (7.5-11.1) L 09/27/18 07:30 CMP Sodium 131 mmol/L (136-145) L 09/27/18 07:30 Potassium 4.2 mmol/L (3.5-5.1) 09/27/18 07:30 Chloride 100 mmol/L (98-107) 09/27/18 07:30 Carbon Dioxide 25 mmol/L (21-32) 09/27/18 07:30 Anion Gap 6 MMOL/L (8-16) L 09/27/18 07:30 BUN 11 mg/dL (7-18) 09/27/18 07:30 Creatinine 0.7 mg/dL (0.55-1.3) 09/27/18 07:30 Creat Clearance w eGFR 108.51 (>60) 09/27/18 07:30 Random Glucose 162 mg/dL (74-106) H 09/27/18 07:30 Calcium 7.6 mg/dL (8.5-10.1) L 09/27/18 07:30 Total Bilirubin 1.0 mg/dL (0.2-1) 09/27/18 07:30 AST 26 U/L (15-37) 09/27/18 07:30 ALT 21 U/L (13-61) 09/27/18 07:30 Alkaline Phosphatase 195 U/L (45-117) H 09/27/18 07:30 Total Protein 5.9 g/dl (6.4-8.2) L 09/27/18 07:30 Albumin 2.4 g/dl (3.4-5.0) L 09/27/18 07:30 CARDIAC ENZYMES Creatine Kinase 41 U/L (26-308) 09/23/18 18:57 Troponin I < 0.02 ng/ml (0.00-0.05) 09/23/18 18:57 Current Medications Generic Name Dose Route Start Last Admin Trade Name Freq PRN Reason Stop Dose Admin Acetaminophen 650 mg 09/24/18 04:09 Tylenol - PO Q4H PRN PAIN LEVEL 1-5 Al Hydroxide/Mg Hydroxide 30 ml 09/24/18 04:08 Mylanta Oral Suspension - PO Q6H PRN DYSPEPSIA Docusate Sodium 100 mg 09/27/18 14:00 09/27/18 15:34 Colace - PO 100 mg TID LOLA Administration Enoxaparin Sodium 40 mg 09/27/18 14:00 09/27/18 15:33 Lovenox - SQ 40 mg DAILY LOLA Administration Ferrous Sulfate 325 mg 09/27/18 14:00 09/27/18 15:34 Feosol - PO 325 mg DAILY LOLA Administration Sodium Chloride 1,000 mls @ 100 mls/hr 09/27/18 12:45 09/27/18 14:20 Normal Saline - IV Not Given ASDIR LOLA Losartan Potassium 50 mg 09/24/18 10:00 09/27/18 09:25 Cozaar - PO 50 mg BID LOLA Administration Pantoprazole Sodium 40 mg 09/24/18 10:00 09/27/18 09:25 Protonix - PO 40 mg DAILY LOLA Administration Senna 1 tab 09/27/18 14:00 09/27/18 15:34 Senna - PO 1 tab BID LOLA Administration Home Medications Medication Instructions Recorded Losartan Potassium [Cozaar -] 50 mg PO BID 09/24/18 US of the upper abdomen showed distended gallbladder filled with sludge without wall thickening, trace pericholecystic free fluid. Ct: thickened appearance of the distal esophagus and irregular thickening and enhancement of the gastric fundus and body concerning for malignancy. There is extensive gastrohepatic and retroperitoneal adenopathy in the upper abdomen concerning for malignant adenopathy. Perihepatic and perisplenic ascites with small amount of ascites in the pelvis. Multiple lytic lesiosn in the sacrum and pelvis the largest in the left iliac bone measuring 2cmconcerning for metastatic disease. Assessment and plan: Patient is an 82 year old man with PMHx of HTN who presents to the ER with a complaint of abdominal pain for 6 months. He arrived from [facility] 1 week ago and was scheduled to see a GI doctor today, but his pain got worse and was brought in to ED. for further care. As per patient, he is not aware of any diagnosis at [facility], no one was able to tell him what's wrong with him. # s/p EGD as per GI findings Circumferential mass in stomach extending from cardia to distal body, likely neoplasm, biopsied for h. pylori and was asked for marino specimen . onc consult appreciated. need CT chest for staging. surgery consult appreciated. # Microcytic anemia due to iron deficiency - will replete iron stores intravenously while admitted as per onco. #HTN Uncontrolled :continue home med. losartan 50mg bid DVT prophylaxis - Lovenox 40 mg SQ q 24 hours. Advance directives - Full code Surgical consult Await pathology result
[2018-09-27] MEDS: LABETALOL HCL 100 MG TABLET (FP) PO SCH (21:56)
[2018-09-28] MEDS: DOCUSATE SODIUM 100 MG CAPSULE (FP) PO SCH ×3 (05:53→22:35)
[2018-09-28 08:02] LABS: ALBUMIN 2.2 g/dl (3.4-5.0); ALK PHOS 167 U/L (45-117); ANION GAP 4 MMOL/L (8-16); BILIRUBIN,TOTAL 1.4 mg/dL (0.2-1); BLOOD UREA NITROGEN 8 mg/dL (7-18); CALCIUM 7.3 mg/dL (8.5-10.1); CHLORIDE 101 mmol/L (98-107); CO2 25 mmol/L (21-32); CREATININE 0.4 mg/dL (0.55-1.3); GLUCOSE,RANDOM 96 mg/dL (74-106); MAGNESIUM 2.1 mg/dL (1.8-2.4); PHOSPHOROUS 2.6 mg/dL (2.5-4.9); SGOT/AST 33 U/L (15-37); SGPT/ALT 25 U/L (13-61); SODIUM 130 mmol/L (136-145); TOT PROT 5.2 g/dl (6.4-8.2)
[2018-09-28 08:36] LABS: HEMOGLOBIN 8.5 GM/dL (11.7-16.9); MCH 21.8 pg (25.7-33.7); MCHC 31.7 g/dl (32.0-35.9); MEAN CELL VOLUME 68.7 fl (80-96); MEAN PLT VOLUME 7.4 fl (7.5-11.1); PLATELET COUNT 379 K/MM3 (134-434); RBC 3.92 M/mm3 (4.00-5.60); RDW 19.4 % (11.9-15.9); WHITE BLOOD COUNT 8.8 K/mm3 (4.0-10.0)
[2018-09-28] MEDS: FERROUS SO4 325 MG TABLET (FP) PO SCH (10:10)
[2018-09-28] MEDS: SENNOSIDES 8.6MG TABLET (FP) PO SCH ×2 (10:10→22:35)
[2018-09-28] MEDS: PANTOPRAZOLE 40 MG TABLET (FP) PO SCH (10:10)
[2018-09-28] MEDS: ENOXAPARIN NA (PORCINE) 40 MG/0.4 ML DISP.SYRIN SQ SCH (10:10)
[2018-09-28] MEDS: LOSARTAN POTASSIUM 50 MG TABLET (FP) PO SCH ×2 (10:14→22:35)
[2018-09-28] MEDS: LABETALOL HCL 100 MG TABLET (FP) PO SCH ×2 (10:14→22:35)
[2018-09-28 11:44] LABS: ANISOCYTOSIS 2+; HELMET CELLS 1+; MACROCYTOSIS 0; PLATELET ESTIMATE NORMAL; ROULEAU 0; TARGET CELLS 1+; TEAR DROP CELLS 1+
[2018-09-28] MEDS ORDERED: ALBUTEROL SO4 0.083% IH SOL 2.5 MG/3 ML VIAL.NEB. NEB PRN (13:18)
--- NOTE | 2018-09-28 13:28 | PN ---
Physical Exam: SUBJECTIVE: Patient seen and examined this AM. No acute overnight events as per nursing. Says he feels better, Denies fevers, chills, chest pain, SOB, nausea, vomiting, diarrhea, constipation. OBJECTIVE: Vital Signs Period Temp Pulse Resp BP Sys/Dangelo Pulse Ox Last 24 Hr 98.2 F-98.9 F 74-82 20-20 120-170/48-90 100 GENERAL: A&Ox3, NAD HEAD: NCAT EYES: PERRL, EOMI ENT: Moist mucous membranes NECK: Supple LUNGS: Diminished breath sound at the bases, no wheezes, no crackles HEART: Regular rate and rhythm, S1, S2 without murmur ABDOMEN: Soft, Mild diffuse tenderness to palpation, nondistended, + bowel sounds EXTREMITIES: No edema. NEUROLOGICAL: Cranial nerves II through XII grossly intact. SKIN: Warm, dry Laboratory Results - last 24 hr 09/27/18 09/28/18 09/28/18 07:30 07:00 07:00 WBC 8.8 RBC 3.92 L Hgb 8.5 L Hct 27.0 L MCV 68.7 L MCH 21.8 L MCHC 31.7 L RDW 19.4 H Plt Count 379 MPV 7.4 L Neutrophils % No Result Required. Neutrophils % (Manual) 84.0 H 81.0 Band Neutrophils % 0.0 0.0 Lymphocytes % No Result Required. Lymphocytes % (Manual) 2.0 L 1.0 L D Monocytes % (Manual) 1 L 3 L D Eosinophils % (Manual) 0.0 2.0 D Basophils % (Manual) 2.0 0.0 Myelocytes % (Man) 0 0 Promyelocytes % (Man) 0 0 Blast Cells % (Manual) 0 0 Nucleated RBC % 0 Metamyelocytes 0 0 Hypochromia 2+ 2+ Platelet Estimate Normal Normal Polychromasia 1+ 1+ Poikilocytosis 2+ 2+ Anisocytosis 1+ 2+ Microcytosis 1+ 1+ Macrocytosis 0 0 Target Cells 2+ 1+ Tear Drop Cells 1+ 1+ Ovalocytes 1+ Helmet Cells 1+ [place] Cells 1+ 1+ Acanthocytes (Spur) 1+ Rouleaux 0 Sodium 130 L Potassium 4.0 Chloride 101 Carbon Dioxide 25 Anion Gap 4 L BUN 8 Creatinine 0.4 L Creat Clearance w eGFR 206.98 Random Glucose 96 Calcium 7.3 L Phosphorus 2.6 Magnesium 2.1 Total Bilirubin 1.4 H AST 33 ALT 25 Alkaline Phosphatase 167 H Total Protein 5.2 L Albumin 2.2 L Active Medications Acetaminophen (Tylenol -) 650 mg PO Q4H PRN PRN Reason: PAIN LEVEL 1-5 Al Hydroxide/Mg Hydroxide (Mylanta Oral Suspension -) 30 ml PO Q6H PRN PRN Reason: DYSPEPSIA Docusate Sodium (Colace -) 100 mg PO TID [facility] Last Admin: 09/28/18 05:53 Dose: 100 mg Enoxaparin Sodium (Lovenox -) 40 mg SQ DAILY [facility] Last Admin: 09/28/18 10:10 Dose: 40 mg Ferrous Sulfate (Feosol -) 325 mg PO DAILY [facility] Last Admin: 09/28/18 10:10 Dose: 325 mg Labetalol HCl (Normodyne -) 100 mg PO BID [facility] Last Admin: 09/28/18 10:14 Dose: 100 mg Losartan Potassium (Cozaar -) 50 mg PO BID [facility] Last Admin: 09/28/18 10:14 Dose: 50 mg Pantoprazole Sodium (Protonix -) 40 mg PO DAILY [facility] Last Admin: 09/28/18 10:10 Dose: 40 mg Senna (Senna -) 1 tab PO BID [facility] Last Admin: 09/28/18 10:10 Dose: 1 tab IMAGING: -Abdomen US: Adequately distended gallbladder that is partially filled with a sludge and without wall thickening. There is a trace of pericholecystic free fluid. There is also minimal free fluid/ascites in the right upper quadrant. The rest of the examination appears unremarkable. -CT A/P with contrast: Gastric findings are noted suggestive of neoplastic disease - ? lymphoma. Extensive upper abdominal lymphadenopathy is seen. A small amount of ascites is noted within the abdomen and pelvis. There is a possible nonexpansile osteolytic lesion within the left iliac bone. Additional evaluation utilizing MRI or whole-body scintigraphy may be performed. Findings are seen within the partially imaged lower chest as discussed above. -CXR: Ill-defined 1.1 cm right upper lobe nodular opacity requiring further evaluation with nonemergent, noncontrast chest CT. -EKG: NSR, VR 69, QTc 439 -Chest CT W/WO Contrast: Moderately severe COPD. Multiple pulmonary nodules strongly suspicious for metastatic disease. Extensive mediastinal and bilateral hilar lymphadenopathy. Please see above discussion. ASSESSMENT/PLAN: 82 y/o man, who recently arrived from [facility], with PMHx of HTN presented with worsening abdominal pain for 6 months. #Abdominal pain -In the setting of metastatic Gastric neoplasm -Will need surgical oncologist follow up -Await pathology report of biopsied stomach mass -GI (Dr. Villasenor) consulted, Appreciate rec's -Oncology (Dr. Sequeira) consulted, Appreciate rec's -Continue Al Hydroxide/Mg Hydroxide Suspension 30ml Q6H PRN, Pantoprazole 40mg daily -Discussed at length with patients daughter #Iron Deficiency Anemia -Continue Ferrous sulfate 325mg #HTN -Losartan 50mg PO BID #Constipation -Colace, Senna #FEN -No standing fluids -Lytes WNL -Full Liquid diet #PPx -DVT: Lovenox Visit type - Emergency Visit Emergency Visit: Yes ED Registration Date: 09/24/18 Care time: The patient presented to the Emergency Department on the above date and was hospitalized for further evaluation of their emergent condition. - New Patient This patient is new to me today: No - Critical Care Critical Care patient: No - Discharge Referral Referred to [facility] Med [facility].: No
--- NOTE | 2018-09-28 15:58 | PN.GI ---
GI Progress Note Subjective: Pt seen/examined at bedside, thai speaking, feeling better, denies abdominal pain, n/v currently. Tolerating full liquid diet. - Objective Vital Signs: Vital Signs Temperature 98.2 F 09/28/18 14:40 Pulse Rate 74 09/28/18 14:40 Respiratory Rate 20 09/28/18 14:40 Blood Pressure 131/53 L 09/28/18 14:40 O2 Sat by Pulse Oximetry (%) 100 09/27/18 21:00 Constitutional: Well Nourished, No Distress, Calm Cardiovascular: Yes: WNL, Regular Rate and Rhythm Respiratory: Yes: WNL, Regular, CTA Bilaterally Gastrointestinal Inspection: Yes: WNL ...Palpate: Yes: Other (Abd soft, nontender, nondistended) Labs: CBC, BMP 09/28/18 07:00 09/28/18 07:00 INR, PTT INR 1.18 (0.83-1.09) H 09/23/18 18:57 Problem List - Problems (1) Gastric mass Assessment/Plan: s/p EGD revealing gastric mass, pathology consistent with poorly differentiated adenocarcinoma. -Diet as tolerated -Follow up oncology recommendations for further management -Pt will also require surg/onc consultation (likely to be pursued as outpt) Discussed with medicine resident Code(s): K31.9 - DISEASE OF STOMACH AND DUODENUM, UNSPECIFIED
[2018-09-28] MEDS: AMINO ACIDS/PROTEIN HYDROLYS 30 ML LIQUID.PKT PO SCH (18:03)
--- NOTE | 2018-09-28 18:31 | PN ---
Teaching Attending Note Name of Resident: Eloise Crump ATTENDING PHYSICIAN STATEMENT I saw and evaluated the patient. I reviewed the resident's note and discussed the case with the resident. I agree with the resident's findings and plan as documented. SUBJECTIVE: seen and examined at bedside, patient has no complaints, resting comfortably. OBJECTIVE: Vital Signs - 24 hr 09/27/18 09/27/18 09/28/18 21:00 21:54 02:00 Temperature 98.9 F 98.7 F Pulse Rate 74 76 Respiratory 20 20 Rate Blood Pressure 155/72 120/48 L O2 Sat by Pulse 100 Oximetry (%) 09/28/18 09/28/18 09/28/18 06:05 09:00 09:26 Temperature 98.9 F 98.2 F Pulse Rate 80 77 Respiratory 20 Rate Blood Pressure 145/64 140/70 O2 Sat by Pulse 100 Oximetry (%) 09/28/18 09/28/18 14:40 18:00 Temperature 98.2 F 99.4 F Pulse Rate 74 79 Respiratory 20 20 Rate Blood Pressure 131/53 L 127/45 L O2 Sat by Pulse Oximetry (%) PHYSICAL EXAM: GENERAL: NAD, comfortable Neck: supple, no LAD CVS: s1s2 RRR no m/r/g Lungs: CTA bl unlabored, no w/r/r Abdomen: soft, nt/nd, nabs Ext: 2+ DPP, no c/c/e Current Medications Generic Name Dose Route Start Last Admin Trade Name Freq PRN Reason Stop Dose Admin Acetaminophen 650 mg 09/24/18 04:09 Tylenol - PO Q4H PRN PAIN LEVEL 1-5 Al Hydroxide/Mg Hydroxide 30 ml 09/24/18 04:08 Mylanta Oral Suspension - PO Q6H PRN DYSPEPSIA Albuterol Sulfate 1 amp 09/28/18 13:18 Ventolin 0.083% Nebulizer Soln - NEB Q6H PRN SHORT OF BREATH/WHEEZING Amino Acids 30 ml 09/28/18 17:30 09/28/18 18:03 Prosource No Carb Liquid Pkt PO 30 ml BID@0800,1730 LOLA Administration Docusate Sodium 100 mg 09/27/18 14:00 09/28/18 14:52 Colace - PO 100 mg TID LOLA Administration Enoxaparin Sodium 40 mg 09/27/18 14:00 09/28/18 10:10 Lovenox - SQ 40 mg DAILY LOLA Administration Ferrous Sulfate 325 mg 09/27/18 14:00 09/28/18 10:10 Feosol - PO 325 mg DAILY LOLA Administration Labetalol HCl 100 mg 09/27/18 22:00 09/28/18 10:14 Normodyne - PO 100 mg BID LOLA Administration Losartan Potassium 50 mg 09/24/18 10:00 09/28/18 10:14 Cozaar - PO 50 mg BID LOLA Administration Pantoprazole Sodium 40 mg 09/24/18 10:00 09/28/18 10:10 Protonix - PO 40 mg DAILY LOLA Administration Senna 1 tab 09/27/18 14:00 09/28/18 10:10 Senna - PO 1 tab BID LOLA Administration Laboratory Results - last 24 hr 09/28/18 09/28/18 07:00 07:00 WBC 8.8 RBC 3.92 L Hgb 8.5 L Hct 27.0 L MCV 68.7 L MCH 21.8 L MCHC 31.7 L RDW 19.4 H Plt Count 379 MPV 7.4 L Neutrophils % No Result Required. Neutrophils % (Manual) 81.0 Band Neutrophils % 0.0 Lymphocytes % No Result Required. Lymphocytes % (Manual) 1.0 L D Monocytes % (Manual) 3 L D Eosinophils % (Manual) 2.0 D Basophils % (Manual) 0.0 Myelocytes % (Man) 0 Promyelocytes % (Man) 0 Blast Cells % (Manual) 0 Nucleated RBC % 0 Metamyelocytes 0 Hypochromia 2+ Platelet Estimate Normal Polychromasia 1+ Poikilocytosis 2+ Anisocytosis 2+ Microcytosis 1+ Macrocytosis 0 Target Cells 1+ Tear Drop Cells 1+ Helmet Cells 1+ [place] Cells 1+ Acanthocytes (Spur) 1+ Rouleaux 0 Sodium 130 L Potassium 4.0 Chloride 101 Carbon Dioxide 25 Anion Gap 4 L BUN 8 Creatinine 0.4 L Creat Clearance w eGFR 206.98 Random Glucose 96 Calcium 7.3 L Phosphorus 2.6 Magnesium 2.1 Total Bilirubin 1.4 H AST 33 ALT 25 Alkaline Phosphatase 167 H Total Protein 5.2 L Albumin 2.2 L ALL IMAGINE REPORTS REVIEWED ASSESSMENT AND PLAN: 82 year old man with PMHx of HTN who presents with abdominal pain for 6 months 1) Gastric CA-newly diagnosed -biopsy, per GI note, poorly differentiated adenocarcinoma -surgery and onc recs appreciated -needs outpatient followup, further staging -social work on case 2) SIVA -given 3 days IV venofer, now on PO ferrous sulfate -monitor h/h 3) HTN -controlled on losartan and labetalol
[2018-09-29] MEDS: DOCUSATE SODIUM 100 MG CAPSULE (FP) PO SCH ×3 (06:25→22:17)
[2018-09-29 07:39] LABS: ALBUMIN 2.1 g/dl (3.4-5.0); ALK PHOS 175 U/L (45-117); ANION GAP 4 MMOL/L (8-16); BILIRUBIN,TOTAL 1.9 mg/dL (0.2-1); BLOOD UREA NITROGEN 11 mg/dL (7-18); CALCIUM 7.4 mg/dL (8.5-10.1); CHLORIDE 99 mmol/L (98-107); CO2 26 mmol/L (21-32); CREATININE 0.5 mg/dL (0.55-1.3); GLUCOSE,RANDOM 87 mg/dL (74-106); HEMATOCRIT 26.5 % (35.4-49); HEMOGLOBIN 8.4 GM/dL (11.7-16.9); MAGNESIUM 2.3 mg/dL (1.8-2.4); MCH 21.9 pg (25.7-33.7); MCHC 31.7 g/dl (32.0-35.9); MEAN CELL VOLUME 69.1 fl (80-96); MEAN PLT VOLUME 7.3 fl (7.5-11.1); PHOSPHOROUS 2.3 mg/dL (2.5-4.9); PLATELET COUNT 394 K/MM3 (134-434); POTASSIUM 4.3 mmol/L (3.5-5.1); RBC 3.84 M/mm3 (4.00-5.60); RDW 19.3 % (11.9-15.9); SGOT/AST 35 U/L (15-37); SGPT/ALT 31 U/L (13-61); SODIUM 130 mmol/L (136-145); TOT PROT 5.2 g/dl (6.4-8.2); WHITE BLOOD COUNT 9.1 K/mm3 (4.0-10.0)
[2018-09-29] MEDS ORDERED: NAPH,MB-DB/K PH,MBDB POWDER PACKET PO ONE (08:15)
[2018-09-29] MEDS: LOSARTAN POTASSIUM 50 MG TABLET (FP) PO SCH ×2 (09:51→22:17)
[2018-09-29] MEDS: PANTOPRAZOLE 40 MG TABLET (FP) PO SCH (09:51)
[2018-09-29] MEDS: SENNOSIDES 8.6MG TABLET (FP) PO SCH ×2 (09:51→22:17)
[2018-09-29] MEDS: FERROUS SO4 325 MG TABLET (FP) PO SCH (09:51)
[2018-09-29] MEDS: LABETALOL HCL 100 MG TABLET (FP) PO SCH ×2 (09:51→22:17)
[2018-09-29] MEDS: AMINO ACIDS/PROTEIN HYDROLYS 30 ML LIQUID.PKT PO SCH ×2 (09:51→17:40)
[2018-09-29] MEDS: ENOXAPARIN NA (PORCINE) 40 MG/0.4 ML DISP.SYRIN SQ SCH (09:52)
--- NOTE | 2018-09-29 10:02 | CONSULT ---
Admitting History and Physical - Primary Care Physician PCP: Mario Escamilla - Admission History of Present Illness: 82 y/o man, who recently arrived from [facility], with PMHx of HTN presented with worsening abdominal pain for 6 months, Cachexia, weight loss, dysphagia. Per EMR: w/u revealed Gastric CA-newly diagnosed -biopsy, per GI note, poorly differentiated adenocarcinoma CT showing thickening of stomach from GE junction to mid-body, with lymphadenopathy and a little ascites in the upper abdomen and pelvis. No bowel obstruction noted. There are also a couple of small lung nodules and focal distal airway findings. CXR shows an ill-defined 1.1cm RUL nodule as well. -CT A/P with contrast: Gastric findings are noted suggestive of neoplastic disease - ? lymphoma. Extensive upper abdominal lymphadenopathy is seen. A small amount of ascites is noted within the abdomen and pelvis. There is a possible nonexpansile osteolytic lesion within the left iliac bone. EGD-circumferential mass extending from cardia to distal body Selected Entries 09/28/18 09/28/18 09/28/18 02:00 06:05 09:19 Breakfast 75% Lunch Supper Temperature 98.7 F 98.9 F 09/28/18 09/28/18 09/28/18 09:26 14:40 18:00 Breakfast Lunch 0 Supper Temperature 98.2 F 98.2 F 99.4 F 09/28/18 09/28/18 09/29/18 19:04 22:00 02:00 Breakfast Lunch Supper 100% Temperature 98.0 F 99.1 F 09/29/18 06:10 Breakfast Lunch Supper Temperature 98.8 F Laboratory Tests 09/29/18 06:[address] note- family stating one week history of epigastric & RUQ burning, abdominal pain worse with eating, dysphagia with solid foods, several months weight loss, cachexia Pt reported to be tolerating full liquid diet. History Source: Patient, Medical Record Limitations to Obtaining History: Language Barrier - Past Medical History Cardiovascular: Yes: HTN Musculoskeletal: Yes: Osteoarthritis - Smoking History Smoking history: Current every day smoker (smoked 7 cigs/day in [facility], now only 2 this last week living with daughter here) Have you smoked in the past 12 months: Yes Aproximately how many cigarettes per day: 2 (used to be heavier, 1 PPD starting age 14) - Alcohol/Substance Use Hx Alcohol Use: No History of Substance Use: reports: None - Social History ADL: Independent History of Recent Travel: Yes (arrived from [facility] last Wednesday) History - Admission Reason For Visit: METASTATIC NEOPLASM, DIFFICULTY EATING - Diagnostics X-ray: Report Reviewed CT Scan: Report Reviewed - General Mental Status: Alert and Oriented, Awake and Alert, Able to Follow Commands Attention: Intact Ability to Follow Directions: Excellent Head/Neck Control: WFL - Hearing Hearing: Normal With Patient: No Speech Evaluation - Communication Primary Language: SWEDISH Communication: Yes: Within Normal Limits Oral Expression Ability: Yes: No Impairment - Speech Production Able to Make Needs Known: Yes: WNL Intelligibility: Yes: WNL - Speech Characteristics Voice Loudness: Normal Voice Pitch: Yes: Normal Voice Phonatory-based Quality: Yes: Normal Speech Pattern: Normal Speech Clarity: < 100% Nasal Resonance: Normal Articulation: Yes: Precise - Language/Auditory Comprehension Follows: Yes: 2 Stage Simple Commands - Language/Verbal Expression Able to Respond to Simple Queries: Yes: WNL Able to Communicate Wants and Needs: Yes: WNL Functional Communication Status: Yes: WNL - Memory/Perception MCC Memory: Yes: WNL Short Term Memory: Yes: WNL - Swallow Evaluation/Bedside Assessment Current Nutritional Intake: Full Liquids Oral Secretions: Yes: WFL Dentition: Yes: Adequate Facial Symmetry at Rest: Symmetrical Facial Symmetry on Retraction: Symmetrical Against Resistance Opening: Normal Against Resistance Closing: Normal Pucker Lips: Normal Lingual Movement: Normal, Symmetric Lingual Speed of Movement: Normal Lingual Movement Strgth Against Opposition: Normal Lingual Movement Characteristics: Normal Velopharyngeal Movement: Normal Laryngeal Elevation: WFL Laryngeal Movement: Able to Palpate Rate of Intake: WFL Bolus Size: WFL Labial Seal: WFL Chewing: WFL Oral Prep Time: WFL A-P Transit: WFL Pocketing: None Timing of Swallow: WFL Recommendations - Speech Evaluation, Impression/Plan Impression: Pt noted to perform sudden hiccough/loud inpiratory phonation after eating and drinking. Pt reports this happens after he eats and food get stuck going down. r/o esophageal dysphagia with impaired emptying/risk of retrograde aspiration. - Dysphagia Impressions/Plan Swallowing Skills: Impaired Dysphagia Impressions: Ongoing Evaluation *Silent aspiration: cannot be R/O at bedside Recommendations: MBS w Esophagus - Recommendations Diet Consistency: NPO Medication Administration: Crushed with applesauce Liquids: NPO
[2018-09-29 10:16] LABS: ANISOCYTOSIS 2+; MACROCYTOSIS 0; PLATELET ESTIMATE NORMAL; TARGET CELLS 2+
--- NOTE | 2018-09-29 12:32 | PN ---
Physical Exam: SUBJECTIVE: Patient seen and examined this AM. Tolerating clear liquid diet. No acute overnight events as per nursing. For MBS today. OBJECTIVE: Vital Signs Period Temp Pulse Resp BP Sys/Dangelo Pulse Ox Last 24 Hr 98.0 F-99.4 F 74-79 18-20 111-137/45-76 96 GENERAL: A&Ox3, NAD HEAD: NCAT EYES: EOMI ENT: Moist mucous membranes NECK: Supple LUNGS: Diminished breath sound at the bases, no wheezes, no crackles HEART: Regular rate and rhythm, S1, S2 without murmur ABDOMEN: Soft, Mild RUQ tenderness to palpation, nondistended, + bowel sounds EXTREMITIES: No edema. NEUROLOGICAL: Cranial nerves II through XII grossly intact. SKIN: Warm, dry Laboratory Results - last 24 hr 09/28/18 09/29/18 09/29/18 21:31 06:25 06:25 WBC 9.1 RBC 3.84 L Hgb 8.4 L Hct 26.5 L MCV 69.1 L MCH 21.9 L MCHC 31.7 L RDW 19.3 H Plt Count 394 MPV 7.3 L Absolute Neuts (auto) 5.1 Neutrophils % No Result Required. Neutrophils % (Manual) 80.8 Band Neutrophils % 1.0 Lymphocytes % No Result Required. Lymphocytes % (Manual) 12.1 D Monocytes % (Manual) 5 Eosinophils % (Manual) 0.0 D Basophils % (Manual) 0.0 Myelocytes % (Man) 0 Promyelocytes % (Man) 0 Blast Cells % (Manual) 0 Nucleated RBC % 0 Metamyelocytes 0 Hypochromia 1+ Platelet Estimate Normal Polychromasia 0 Poikilocytosis 0 Basophilic Stippling 1+ Anisocytosis 2+ Microcytosis 2+ Macrocytosis 0 Target Cells 2+ Schistocytes 1+ Sodium 130 L Potassium 4.3 Chloride 99 Carbon Dioxide 26 Anion Gap 4 L BUN 11 Creatinine 0.5 L Creat Clearance w eGFR 159.99 POC Glucometer 161 Random Glucose 87 Calcium 7.4 L Phosphorus 2.3 L Magnesium 2.3 Total Bilirubin 1.9 H AST 35 ALT 31 Alkaline Phosphatase 175 H Total Protein 5.2 L Albumin 2.1 L Active Medications Acetaminophen (Tylenol -) 650 mg PO Q4H PRN PRN Reason: PAIN LEVEL 1-5 Al Hydroxide/Mg Hydroxide (Mylanta Oral Suspension -) 30 ml PO Q6H PRN PRN Reason: DYSPEPSIA Albuterol Sulfate (Ventolin 0.083% Nebulizer Soln -) 1 amp NEB Q6H PRN PRN Reason: SHORT OF BREATH/WHEEZING Amino Acids (Prosource No Carb Liquid Pkt) 30 ml PO BID@0800,1730 [facility] Last Admin: 09/29/18 09:51 Dose: 30 ml Docusate Sodium (Colace -) 100 mg PO TID [facility] Last Admin: 09/29/18 06:25 Dose: 100 mg Enoxaparin Sodium (Lovenox -) 40 mg SQ DAILY [facility] Last Admin: 09/29/18 09:52 Dose: 40 mg Ferrous Sulfate (Feosol -) 325 mg PO DAILY [facility] Last Admin: 09/29/18 09:51 Dose: 325 mg Labetalol HCl (Normodyne -) 100 mg PO BID [facility] Last Admin: 09/29/18 09:51 Dose: 100 mg Losartan Potassium (Cozaar -) 50 mg PO BID [facility] Last Admin: 09/29/18 09:51 Dose: 50 mg Pantoprazole Sodium (Protonix -) 40 mg PO DAILY [facility] Last Admin: 09/29/18 09:51 Dose: 40 mg Senna (Senna -) 1 tab PO BID [facility] Last Admin: 09/29/18 09:51 Dose: 1 tab IMAGING: -Abdomen US: Adequately distended gallbladder that is partially filled with a sludge and without wall thickening. There is a trace of pericholecystic free fluid. There is also minimal free fluid/ascites in the right upper quadrant. The rest of the examination appears unremarkable. -CT A/P with contrast: Gastric findings are noted suggestive of neoplastic disease - ? lymphoma. Extensive upper abdominal lymphadenopathy is seen. A small amount of ascites is noted within the abdomen and pelvis. There is a possible nonexpansile osteolytic lesion within the left iliac bone. Additional evaluation utilizing MRI or whole-body scintigraphy may be performed. Findings are seen within the partially imaged lower chest as discussed above. -CXR: Ill-defined 1.1 cm right upper lobe nodular opacity requiring further evaluation with nonemergent, noncontrast chest CT. -EKG: NSR, VR 69, QTc 439 -Chest CT W/WO Contrast: Moderately severe COPD. Multiple pulmonary nodules strongly suspicious for metastatic disease. Extensive mediastinal and bilateral hilar lymphadenopathy. Please see above discussion. ASSESSMENT/PLAN: 82 y/o man, who recently arrived from [facility], with PMHx of HTN presented with worsening abdominal pain for 6 months. #Abdominal pain -In the setting of metastatic Gastric neoplasm; Bx revealed poorly differentiated adenocarcinoma -Will need surgical oncologist follow up--Given Dr. Ulloa's information at [facility] -GI (Dr. Villasenor) consulted, Appreciate rec's -Oncology (Dr. Sequeira) consulted, Appreciate rec's -Continue Al Hydroxide/Mg Hydroxide Suspension 30ml Q6H PRN, Pantoprazole 40mg daily -Discussed at length with patients daughter #Dysphagia -Speech and Swallow consulted -MBS pending #Iron Deficiency Anemia -Continue Ferrous sulfate 325mg #HTN -Losartan 50mg PO BID -Labetalol 100mg PO BID #Constipation -Colace, Senna #FEN -No standing fluids -Lytes WNL -NPO pending MBS #PPx -DVT: Lovenox Visit type - Emergency Visit Emergency Visit: Yes ED Registration Date: 09/24/18 Care time: The patient presented to the Emergency Department on the above date and was hospitalized for further evaluation of their emergent condition. - New Patient This patient is new to me today: No - Critical Care Critical Care patient: No - Discharge Referral Referred to [facility] No
[2018-09-29] MEDS ORDERED: PT OWN MED DRAWER 7, Y5N ONE (15:25)
--- NOTE | 2018-09-29 15:53 | PN ---
Teaching Attending Note Name of Resident: Eloise Crump ATTENDING PHYSICIAN STATEMENT I saw and evaluated the patient. I reviewed the resident's note and discussed the case with the resident. I agree with the resident's findings and plan as documented. SUBJECTIVE: Patient has no complaints. OBJECTIVE: Vital Signs Period Temp Pulse Resp BP Sys/Dangelo Pulse Ox Last 24 Hr 98.0 F-99.4 F 70-79 18-20 111-137/45-76 96 HEART: S1S2, RRR LUNGS: Clear ABDOMEN: Soft, non-tender, non-distended, normal BS EXTREMITIES: No edema Laboratory Results - last 24 hr 09/28/18 09/29/18 09/29/18 21:31 06:25 06:25 WBC 9.1 RBC 3.84 L Hgb 8.4 L Hct 26.5 L MCV 69.1 L MCH 21.9 L MCHC 31.7 L RDW 19.3 H Plt Count 394 MPV 7.3 L Absolute Neuts (auto) 5.1 Neutrophils % No Result Required. Neutrophils % (Manual) 80.8 Band Neutrophils % 1.0 Lymphocytes % No Result Required. Lymphocytes % (Manual) 12.1 D Monocytes % (Manual) 5 Eosinophils % (Manual) 0.0 D Basophils % (Manual) 0.0 Myelocytes % (Man) 0 Promyelocytes % (Man) 0 Blast Cells % (Manual) 0 Nucleated RBC % 0 Metamyelocytes 0 Hypochromia 1+ Platelet Estimate Normal Polychromasia 0 Poikilocytosis 0 Basophilic Stippling 1+ Anisocytosis 2+ Microcytosis 2+ Macrocytosis 0 Target Cells 2+ Schistocytes 1+ Sodium 130 L Potassium 4.3 Chloride 99 Carbon Dioxide 26 Anion Gap 4 L BUN 11 Creatinine 0.5 L Creat Clearance w eGFR 159.99 POC Glucometer 161 Random Glucose 87 Calcium 7.4 L Phosphorus 2.3 L Magnesium 2.3 Total Bilirubin 1.9 H AST 35 ALT 31 Alkaline Phosphatase 175 H Total Protein 5.2 L Albumin 2.1 L Current Medications Generic Name Dose Route Start Last Admin Trade Name Freq PRN Reason Stop Dose Admin Acetaminophen 650 mg 09/24/18 04:09 Tylenol - PO Q4H PRN PAIN LEVEL 1-5 Al Hydroxide/Mg Hydroxide 30 ml 09/24/18 04:08 Mylanta Oral Suspension - PO Q6H PRN DYSPEPSIA Albuterol Sulfate 1 amp 04/17/19 13:18 Ventolin 0.083% Nebulizer Soln - NEB Q6H PRN SHORT OF BREATH/WHEEZING Amino Acids 30 ml 09/28/18 17:30 09/29/18 09:51 Prosource No Carb Liquid Pkt PO 30 ml BID@0800,1730 LOLA Administration Docusate Sodium 100 mg 09/27/18 14:00 09/29/18 15:27 Colace - PO 100 mg TID LOLA Administration Enoxaparin Sodium 40 mg 09/27/18 14:00 09/29/18 09:52 Lovenox - SQ 40 mg DAILY LOLA Administration Ferrous Sulfate 325 mg 09/27/18 14:00 09/29/18 09:51 Feosol - PO 325 mg DAILY LOLA Administration Labetalol HCl 100 mg 09/27/18 22:00 09/29/18 09:51 Normodyne - PO 100 mg BID LOLA Administration Losartan Potassium 50 mg 09/24/18 10:00 09/29/18 09:51 Cozaar - PO 50 mg BID LOLA Administration Pantoprazole Sodium 40 mg 09/24/18 10:00 09/29/18 09:51 Protonix - PO 40 mg DAILY LOLA Administration Senna 1 tab 09/27/18 14:00 09/29/18 09:51 Senna - PO 1 tab BID LOLA Administration ASSESSMENT AND PLAN: This is an 82 year old man with a history of HTN who presented to the ED with abdominal pain. 1. Gastric adenocarcinoma, poorly differentiated, with possible lung and bone ( left iliac) mets - Further staging as outpatient - Surgical oncology evaluation as outpatient - Modified barium swallow done - pureed diet with thin liquids recommended 2. Iron-deficiency anemia - s/p Venofer x3 - Continue ferrous sulfate 3. HTN - Continue losartan, labetalol 4. Disposition - Ok for discharge home today
--- NOTE | 2018-09-29 22:14 | PN ---
Progress Note (short form) - Note Progress Note: Patient seen and examined c./o fatigue AFVSS Cor: RSR, No murmurs, No gallops Lungs: Clear to P&A Abd: Soft, Normal bowel sounds, No organomegaly Ext:No significant edema Labs/Meds reviewed A/P Patient presenting with sevarl months cachexia, microcytic anemia, and gastric mass and associated adenopathy on CT scan, Circumferential mass in stomach extending from cardia to distal body, likely neoplasm, biopsied Biopsy c/w poorly differentiated adenocarcinoma-- Her2/PDL1 pending Multiple lung nodules --stage IV Borderline performance status Discussed with family about poor performance status, stage IV dsese, pending biomarkers, Will refer to oncology clinic at [facility] with records/CDs--[phone] Patient and family considering palliative care
[2018-09-30] MEDS: DOCUSATE SODIUM 100 MG CAPSULE (FP) PO SCH ×3 (05:37→22:10)
[2018-09-30 08:12] LABS: ALBUMIN 2.2 g/dl (3.4-5.0); ALK PHOS 190 U/L (45-117); ANION GAP 7 MMOL/L (8-16); BILIRUBIN,TOTAL 4.2 mg/dL (0.2-1); BLOOD UREA NITROGEN 14 mg/dL (7-18); CALCIUM 7.3 mg/dL (8.5-10.1); CHLORIDE 100 mmol/L (98-107); CO2 26 mmol/L (21-32); CREATININE 0.5 mg/dL (0.55-1.3); GLUCOSE,RANDOM 91 mg/dL (74-106); MAGNESIUM 2.5 mg/dL (1.8-2.4); PHOSPHOROUS 2.2 mg/dL (2.5-4.9); POTASSIUM 4.1 mmol/L (3.5-5.1); SGOT/AST 37 U/L (15-37); SGPT/ALT 30 U/L (13-61); SODIUM 134 mmol/L (136-145); TOT PROT 5.3 g/dl (6.4-8.2)
[2018-09-30 08:47] LABS: HEMATOCRIT 29.7 % (35.4-49); HEMOGLOBIN 9.5 GM/dL (11.7-16.9); MCH 22.9 pg (25.7-33.7); MCHC 32.1 g/dl (32.0-35.9); MEAN CELL VOLUME 71.2 fl (80-96); MEAN PLT VOLUME 7.6 fl (7.5-11.1); PLATELET COUNT 361 K/MM3 (134-434); RBC 4.17 M/mm3 (4.00-5.60); RDW 20.5 % (11.9-15.9); WHITE BLOOD COUNT 9.2 K/mm3 (4.0-10.0)
[2018-09-30 08:51] LABS: ADD RBC MORPHOLOGY YES
[2018-09-30] MEDS: ENOXAPARIN NA (PORCINE) 40 MG/0.4 ML DISP.SYRIN SQ SCH (09:08)
[2018-09-30] MEDS: LABETALOL HCL 100 MG TABLET (FP) PO SCH (09:09)
[2018-09-30] MEDS: PANTOPRAZOLE 40 MG TABLET (FP) PO SCH (09:09)
[2018-09-30] MEDS: SENNOSIDES 8.6MG TABLET (FP) PO SCH ×2 (09:09→22:10)
[2018-09-30] MEDS: FERROUS SO4 325 MG TABLET (FP) PO SCH (09:09)
[2018-09-30] MEDS: AMINO ACIDS/PROTEIN HYDROLYS 30 ML LIQUID.PKT PO SCH ×2 (09:09→16:42)
[2018-09-30] MEDS: LOSARTAN POTASSIUM 50 MG TABLET (FP) PO SCH ×2 (09:09→22:11)
[2018-09-30 10:03] LABS: ANISOCYTOSIS 1+; MACROCYTOSIS 0; PLATELET ESTIMATE NORMAL
--- NOTE | 2018-09-30 11:13 | PN ---
Progress Note (short form) - Note Progress Note: Patient seen and examined Complains of abdominal pain Modified barium results noted- no aspiration Last Vital Signs Temp Pulse Resp BP Pulse Ox 98.6 F 78 18 128/71 98 09/30/18 09:11 09/30/18 09:11 09/30/18 09:11 09/30/18 09:11 09/29/18 21:00 HEENT: GISELA, EOM Intact Oropharynx: No thrush, No mucositis Cor: RSR, No murmurs, No gallops Lungs: Clear to P&A Abd: Soft, Normal bowel sounds, No organomegaly Ext:No significant edema Skin: No rashes, Integument intact CBC, BMP 09/30/18 06:35 09/30/18 06:35 Current Medications Generic Name Dose Route Start Last Admin Trade Name Freq PRN Reason Stop Dose Admin Acetaminophen 650 mg 09/24/18 04:09 Tylenol - PO Q4H PRN PAIN LEVEL 1-5 Al Hydroxide/Mg Hydroxide 30 ml 09/24/18 04:08 Mylanta Oral Suspension - PO Q6H PRN DYSPEPSIA Albuterol Sulfate 1 amp 09/28/18 13:18 Ventolin 0.083% Nebulizer Soln - NEB Q6H PRN SHORT OF BREATH/WHEEZING Amino Acids 30 ml 09/28/18 17:30 09/30/18 09:09 Prosource No Carb Liquid Pkt PO Not Given BID@0800,1730 LOLA Docusate Sodium 100 mg 09/27/18 14:00 09/30/18 05:37 Colace - PO Not Given TID LOLA Enoxaparin Sodium 40 mg 09/27/18 14:00 09/30/18 09:08 Lovenox - SQ 40 mg DAILY LOLA Administration Ferrous Sulfate 325 mg 09/27/18 14:00 09/30/18 09:09 Feosol - PO 325 mg DAILY LOLA Administration Labetalol HCl 100 mg 09/27/18 22:00 09/30/18 09:09 Normodyne - PO 100 mg BID LOLA Administration Losartan Potassium 50 mg 09/24/18 10:00 09/30/18 09:09 Cozaar - PO 50 mg BID LOLA Administration Pantoprazole Sodium 40 mg 09/24/18 10:00 09/30/18 09:09 Protonix - PO 40 mg DAILY LOLA Administration Senna 1 tab 09/27/18 14:00 09/30/18 09:09 Senna - PO Not Given BID LOLA Impression: Gastric ca Suggest follow up at [facility] --[phone]
--- NOTE | 2018-09-30 11:51 | DS ---
Physical Exam: SUBJECTIVE: Patient seen and examined this AM. Received 1 unit pRBC overnight. Appointment scheduled for Oncology follow up at [facility] ( further details in discharge plan). No acute overnight events. No new complaints. OBJECTIVE: Vital Signs Period Temp Pulse Resp BP Sys/Dangelo Pulse Ox Last 24 Hr 98.1 F-99.2 F 70-82 18-20 119-137/54-79 98 PHYSICAL EXAM GENERAL: A&Ox3, NAD HEAD: NCAT EYES: EOMI ENT: Moist mucous membranes NECK: Supple LUNGS: Diminished breath sound at the bases, no wheezes, no crackles HEART: Regular rate and rhythm, S1, S2 without murmur ABDOMEN: Soft, Mild RUQ tenderness to palpation, nondistended, + bowel sounds EXTREMITIES: No edema. NEUROLOGICAL: Cranial nerves II through XII grossly intact. SKIN: Warm, dry LABS Laboratory Last Values WBC 9.2 K/mm3 (4.0-10.0) 09/30/18 06:35 RBC 4.17 M/mm3 (4.00-5.60) 09/30/18 06:35 Hgb 9.5 GM/dL (11.7-16.9) L 09/30/18 06:35 Hct 29.7 % (35.4-49) L 09/30/18 06:35 MCV 71.2 fl (80-96) L 09/30/18 06:35 MCH 22.9 pg (25.7-33.7) L 09/30/18 06:35 MCHC 32.1 g/dl (32.0-35.9) 09/30/18 06:35 RDW 20.5 % (11.9-15.9) H 09/30/18 06:35 Plt Count 361 K/MM3 (134-434) 09/30/18 06:35 MPV 7.6 fl (7.5-11.1) 09/30/18 06:35 Absolute Neuts (auto) 5.1 K/mm3 (1.5-8.0) 09/29/18 06:25 Neutrophils % No Result Required. 09/30/18 06:35 Neutrophils % (Manual) 77.0 % (42.8-82.8) 09/30/18 06:35 Band Neutrophils % 2.0 % 09/30/18 06:35 Lymphocytes % No Result Required. 09/30/18 06:35 Lymphocytes % (Manual) 11.0 % (8-40) 09/30/18 06:35 Monocytes % 6.9 % (3.8-10.2) 09/23/18 18:57 Monocytes % (Manual) 10 % (3.8-10.2) D 09/30/18 06:35 Eosinophils % 1.2 % (0-4.5) 09/23/18 18:57 Eosinophils % (Manual) 0.0 % (0-4.5) 09/30/18 06:35 Basophils % 0.8 % (0-2.0) 09/23/18 18:57 Basophils % (Manual) 0.0 % (0-2.0) 09/30/18 06:35 Myelocytes % (Man) 0 % (0-2) 09/30/18 06:35 Promyelocytes % (Man) 0 % (0-2) 09/30/18 06:35 Blast Cells % (Manual) 0 % (0-0) 09/30/18 06:35 Nucleated RBC % 0 % (0-0) 09/30/18 06:35 Metamyelocytes 0 % (0-2) 09/30/18 06:35 Hypochromia 1+ 09/30/18 06:35 Platelet Estimate Normal 09/30/18 06:35 Polychromasia 0 09/30/18 06:35 Poikilocytosis 0 09/30/18 06:35 Basophilic Stippling 1+ 09/29/18 06:25 Anisocytosis 1+ 09/30/18 06:35 Microcytosis 1+ 09/30/18 06:35 Macrocytosis 0 09/30/18 06:35 Target Cells 2+ 09/29/18 06:25 Tear Drop Cells 1+ 09/28/18 07:00 Ovalocytes 1+ 09/27/18 07:30 Helmet Cells 1+ 09/28/18 07:00 Britney Cells 1+ 09/28/18 07:00 Acanthocytes (Spur) 1+ 09/28/18 07:00 Rouleaux 0 09/28/18 07:00 Schistocytes 1+ 09/29/18 06:25 PT with INR 13.90 SEC (9.7-13.0) H 09/23/18 18:57 INR 1.18 (0.83-1.09) H 09/23/18 18:57 PTT (Actin FS) 30.0 SECONDS (25.2-36.5) 09/23/18 18:57 Sodium 134 mmol/L (136-145) L 09/30/18 06:35 Potassium 4.1 mmol/L (3.5-5.1) 09/30/18 06:35 Chloride 100 mmol/L (98-107) 09/30/18 06:35 Carbon Dioxide 26 mmol/L (21-32) 09/30/18 06:35 Anion Gap 7 MMOL/L (8-16) L 09/30/18 06:35 BUN 14 mg/dL (7-18) 09/30/18 06:35 Creatinine 0.5 mg/dL (0.55-1.3) L 09/30/18 06:35 Creat Clearance w eGFR 159.99 (>60) 09/30/18 06:35 POC Glucometer 161 UNITS (80-120) 09/28/18 21:31 Random Glucose 91 mg/dL (74-106) 09/30/18 06:35 Calcium 7.3 mg/dL (8.5-10.1) L 09/30/18 06:35 Phosphorus 2.2 mg/dL (2.5-4.9) L 09/30/18 06:35 Magnesium 2.5 mg/dL (1.8-2.4) H 09/30/18 06:35 Iron 12 ug/dL (38-169) L 09/25/18 06:10 TIBC 227 ug/dL (250-450) L 09/25/18 06:10 Iron Saturation 5 % (15-55) L 09/25/18 06:10 Ferritin 9.1 ng/ml (8-388) 09/25/18 06:10 Total Bilirubin 4.2 mg/dL (0.2-1) H 09/30/18 06:35 Direct Bilirubin 2.5 mg/dL (0.0-0.2) H 09/30/18 06:35 GGT 418 U/L (5-85) H 09/30/18 06:35 AST 37 U/L (15-37) 09/30/18 06:35 ALT 30 U/L (13-61) 09/30/18 06:35 Alkaline Phosphatase 190 U/L (45-117) H 09/30/18 06:35 LD Total 152 U/L (87-246) 09/30/18 06:35 Creatine Kinase 41 U/L (26-308) 09/23/18 18:57 Troponin I < 0.02 ng/ml (0.00-0.05) 09/23/18 18:57 Total Protein 5.3 g/dl (6.4-8.2) L 09/30/18 06:35 Albumin 2.2 g/dl (3.4-5.0) L 09/30/18 06:35 Lipase 281 U/L (73-393) 09/23/18 18:57 Blood Type AB POSITIVE 09/29/18 20:35 Antibody Screen Negative 09/29/18 18:15 Crossmatch See Detail 09/29/18 18:15 IMAGING: -Abdomen US: Adequately distended gallbladder that is partially filled with a sludge and without wall thickening. There is a trace of pericholecystic free fluid. There is also minimal free fluid/ascites in the right upper quadrant. The rest of the examination appears unremarkable. -CT A/P with contrast: Gastric findings are noted suggestive of neoplastic disease - ? lymphoma. Extensive upper abdominal lymphadenopathy is seen. A small amount of ascites is noted within the abdomen and pelvis. There is a possible nonexpansile osteolytic lesion within the left iliac bone. Additional evaluation utilizing MRI or whole-body scintigraphy may be performed. Findings are seen within the partially imaged lower chest as discussed above. -CXR: Ill-defined 1.1 cm right upper lobe nodular opacity requiring further evaluation with nonemergent, noncontrast chest CT. -EKG: NSR, VR 69, QTc 439 -Chest CT W/WO Contrast: Moderately severe COPD. Multiple pulmonary nodules strongly suspicious for metastatic disease. Extensive mediastinal and bilateral hilar lymphadenopathy. Please see above discussion. HOSPITAL COURSE: Date of Admission:09/24/18 Date of Discharge: 09/30/18 82 y/o man, who recently arrived from [facility], with PMHx of HTN presented with worsening abdominal pain for 6 months. Imaging and Labwork done noted above. GI , Oncology and general surgery were consulted. CT A/P was suggestive of Gastric Neoplastic disease. Patient underwent an EGD during which a Biopsy of mass was done; Bx evealed poorly differentiated adenocarcinoma. Chest CT was suspicious for Metastatic disease. Patient received 1 unit pRBC's as per Oncology rec's. General surgery recommended follow up with a surgical oncologist. Patient abdominal pain improved with miralax and PPI. An MBS was done for which speech and swallow recommended Puree diet. Patient additionally was found to have Iron Def. anemia for which he received 3 days of IV supplementation and was transitioned to PO. His Home medication regimen was optimized; Patient was started on beta ruben and continued his ARB. Patient and family were informed of diagnosis, and advised to follow up with [facility] for further work up. Patient was discharged home with strict instruction for physician follow up and medication compliance. Discharge Summary Reason For Visit: METASTATIC NEOPLASM, DIFFICULTY EATING Current Active Problems Cachexia (Acute) Difficulty eating (Acute) Difficulty in swallowing (Acute) Gastric mass (Acute) Gastric neoplasm (Acute) HTN (hypertension) (Acute) Metastatic cancer (Acute) RUQ pain (Acute) Unintentional weight loss of 10% body weight within 6 months (Acute) Condition: Stable - Instructions Diet, Activity, Other Instructions: You were admitted to the hospital because you had worsening abdominal pain. Imaging showed there was a mass in your stomach. You were seen by both a sap bw bi developer and an Oncologist, and a biopsy was done. A Catscan was done and revealed multiple pulmonary nodules strongly suspicious for metastasis. Medication Changes: 1. Ferrous sulfate (Iron Supplement) 325mg daily 2. Mylanta 30ml every 6 hours as needed 3. Pantoprazole 40mg daily 4. Colace 100mg Three times a day 5. Senna 1 tablet twice a day 6. Labetalol 100mg twice a day 7. Prosource 30mL Twice a day Follow up with the following physicians: 1. PCP in one week 2. Gastroenterology--Dr. Villasenor in one week 3. Oncologist--You have an appointment scheduled on 10/20 @ 3pm at the [facility] located at [address] [place] [address] on the 1st floor [facility], You can reach them at [phone] extension 1 4. YOU MUST FOLLOW UP WITH A SURGICAL ONCOLOGIST (Dr. Nayak In) THE MASS MAY BE MAY BE CANCEROUS Your swallowing was evaluated and it is recommended you have a PUREE DIET Continue all your other medications as prescribed Please return to the ER if you have any signs or symptoms of chest pain, shortness of breath, uncontrollable fever, chills, nausea, vomiting, numbness, tingling, or weakness in any part of your body, changes in vision, slurred speech, changes in speech/gait, or dizziness. Please return to the ER if symptoms persist, worsen, or new symptoms arise. Referrals: Malini Ulloa MD [Other] ([address] [place] [address] ) Anastasiya Guerrero MD [Staff Physician] - Jeromy Villasenor MD [Staff Physician] - Disposition: HOME - Home Medications Comprehensive Discharge Medication List: Ambulatory Orders Losartan Potassium [Cozaar -] 50 mg PO BID 09/24/18 Albuterol 0.083% Nebulizer Trina [Ventolin 0.083% Nebulizer Soln -] 1 amp NEB Q6H PRN #1 amp 09/29/18 Amino Acids/Protein Hydrolys [Prosource No Carb Liquid Pkt] 30 ml PO BID@0800, 1730 #30 packet 09/29/18 Docusate Sodium [Colace -] 100 mg PO TID #90 capsule 09/29/18 Ferrous Sulfate [Feosol] 325 mg PO DAILY #30 ud 09/29/18 Labetalol HCl [Normodyne -] 100 mg PO BID #60 tablet 09/29/18 Mag Hydrox/Al Hydrox/Simeth [Mylanta Oral Suspension -] 30 ml PO Q6H PRN #30 cup 09/29/18 Pantoprazole Sodium [Protonix -] 40 mg PO DAILY #30 tablet.ec 09/29/18 Sennosides [Senna -] 1 tab PO BID #60 tablet 09/29/18 - Discharge Referral Referred to [facility] No
[2018-09-30 12:37] LABS: BILIRUBIN,DIRECT 2.5 mg/dL (0.0-0.2); GAMMA GLUTAMYL TRANSPEPTIDASE 418 U/L (5-85); LDH 152 U/L (87-246)
--- NOTE | 2018-09-30 14:54 | PN.GI ---
GI Progress Note Subjective: No acute events Chronic abdominal pain, unchanged - Objective Vital Signs: Vital Signs Temperature 98 F 09/30/18 14:39 Pulse Rate 57 L 09/30/18 14:39 Respiratory Rate 18 09/30/18 14:39 Blood Pressure 115/59 L 09/30/18 14:39 O2 Sat by Pulse Oximetry (%) 98 09/29/18 21:00 Constitutional: Calm Eyes: No: Sclera Icterus Cardiovascular: Yes: Regular Rate and Rhythm Respiratory: Yes: CTA Bilaterally Gastrointestinal Inspection: No: Distention ...Auscultate: Yes: Normoactive Bowel Sounds ...Palpate: Yes: Hepatomegaly, Soft. No: Tenderness ...Percussion: No: Tympanitic Edema: No (No LE edema) Neurological: Yes: Alert Labs: CBC, BMP 09/30/18 06:35 09/30/18 06:35 INR, PTT INR 1.18 (0.83-1.09) H 09/23/18 18:57 Problem List - Problems (1) Jaundice Assessment/Plan: Rising LFTs including bilirubin. rise began after initiating labetalol No RUQ TTP and normal WBC's Ordered MRCP to assess biliary tract Primary team to stop labetalol Repeat LFTs ordered for AM D/C'd acetaminophen Dr. Romo covering the weekend Code(s): R17 - UNSPECIFIED JAUNDICE
--- NOTE | 2018-09-30 15:25 | PN ---
Physical Exam: SUBJECTIVE: Patient seen and examined this AM. Received 1 unit pRBC overnight. Appointment scheduled for Oncology follow up at [facility] ( further details in discharge plan). No acute overnight events. No new complaints. OBJECTIVE: Vital Signs Period Temp Pulse Resp BP Sys/Dangelo Pulse Ox Last 24 Hr 98 F-99.2 F 57-82 18-20 115-137/56-79 98 GENERAL: A&Ox3, NAD HEAD: NCAT EYES: EOMI ENT: Moist mucous membranes NECK: Supple LUNGS: Diminished breath sound at the bases, no wheezes, no crackles HEART: Regular rate and rhythm, S1, S2 without murmur ABDOMEN: Soft, Nontender, nondistended, + bowel sounds EXTREMITIES: No edema NEUROLOGICAL: Cranial nerves II through XII grossly intact. SKIN: Warm, dry Laboratory Results - last 24 hr 09/29/18 09/29/18 09/30/18 18:15 20:35 06:35 WBC 9.2 RBC 4.17 Hgb 9.5 L Hct 29.7 L MCV 71.2 L MCH 22.9 L MCHC 32.1 RDW 20.5 H Plt Count 361 MPV 7.6 Neutrophils % No Result Required. Neutrophils % (Manual) 77.0 Band Neutrophils % 2.0 Lymphocytes % No Result Required. Lymphocytes % (Manual) 11.0 Monocytes % (Manual) 10 D Eosinophils % (Manual) 0.0 Basophils % (Manual) 0.0 Myelocytes % (Man) 0 Promyelocytes % (Man) 0 Blast Cells % (Manual) 0 Nucleated RBC % 0 Metamyelocytes 0 Hypochromia 1+ Platelet Estimate Normal Polychromasia 0 Poikilocytosis 0 Anisocytosis 1+ Microcytosis 1+ Macrocytosis 0 Sodium Potassium Chloride Carbon Dioxide Anion Gap BUN Creatinine Creat Clearance w eGFR Random Glucose Calcium Phosphorus Magnesium Total Bilirubin Direct Bilirubin GGT AST ALT Alkaline Phosphatase LD Total Total Protein Albumin Blood Type AB POSITIVE AB POSITIVE Antibody Screen Negative Crossmatch See Detail 09/30/18 06:35 WBC RBC Hgb Hct MCV MCH MCHC RDW Plt Count MPV Neutrophils % Neutrophils % (Manual) Band Neutrophils % Lymphocytes % Lymphocytes % (Manual) Monocytes % (Manual) Eosinophils % (Manual) Basophils % (Manual) Myelocytes % (Man) Promyelocytes % (Man) Blast Cells % (Manual) Nucleated RBC % Metamyelocytes Hypochromia Platelet Estimate Polychromasia Poikilocytosis Anisocytosis Microcytosis Macrocytosis Sodium 134 L Potassium 4.1 Chloride 100 Carbon Dioxide 26 Anion Gap 7 L BUN 14 Creatinine 0.5 L Creat Clearance w eGFR 159.99 Random Glucose 91 Calcium 7.3 L Phosphorus 2.2 L Magnesium 2.5 H Total Bilirubin 4.2 H Direct Bilirubin 2.5 H GGT 418 H AST 37 ALT 30 Alkaline Phosphatase 190 H LD Total 152 Total Protein 5.3 L Albumin 2.2 L Blood Type Antibody Screen Crossmatch Active Medications Al Hydroxide/Mg Hydroxide (Mylanta Oral Suspension -) 30 ml PO Q6H PRN PRN Reason: DYSPEPSIA Albuterol Sulfate (Ventolin 0.083% Nebulizer Soln -) 1 amp NEB Q6H PRN PRN Reason: SHORT OF BREATH/WHEEZING Amino Acids (Prosource No Carb Liquid Pkt) 30 ml PO BID@0800,1730 [facility] Last Admin: 09/30/18 09:09 Dose: Not Given Docusate Sodium (Colace -) 100 mg PO TID [facility] Last Admin: 09/30/18 13:50 Dose: Not Given Enoxaparin Sodium (Lovenox -) 40 mg SQ DAILY [facility] Last Admin: 09/30/18 09:08 Dose: 40 mg Ferrous Sulfate (Feosol -) 325 mg PO DAILY [facility] Last Admin: 09/30/18 09:09 Dose: 325 mg Losartan Potassium (Cozaar -) 50 mg PO BID [facility] Last Admin: 09/30/18 09:09 Dose: 50 mg Pantoprazole Sodium (Protonix -) 40 mg PO DAILY [facility] Last Admin: 09/30/18 09:09 Dose: 40 mg Senna (Senna -) 1 tab PO BID [facility] Last Admin: 09/30/18 09:09 Dose: Not Given IMAGING: -Abdomen US: Adequately distended gallbladder that is partially filled with a sludge and without wall thickening. There is a trace of pericholecystic free fluid. There is also minimal free fluid/ascites in the right upper quadrant. The rest of the examination appears unremarkable. -CT A/P with contrast: Gastric findings are noted suggestive of neoplastic disease - ? lymphoma. Extensive upper abdominal lymphadenopathy is seen. A small amount of ascites is noted within the abdomen and pelvis. There is a possible nonexpansile osteolytic lesion within the left iliac bone. Additional evaluation utilizing MRI or whole-body scintigraphy may be performed. Findings are seen within the partially imaged lower chest as discussed above. -CXR: Ill-defined 1.1 cm right upper lobe nodular opacity requiring further evaluation with nonemergent, noncontrast chest CT. -EKG: NSR, VR 69, QTc 439 -Chest CT W/WO Contrast: Moderately severe COPD. Multiple pulmonary nodules strongly suspicious for metastatic disease. Extensive mediastinal and bilateral hilar lymphadenopathy. Please see above discussion. ASSESSMENT/PLAN: 82 y/o man, who recently arrived from [facility], with PMHx of HTN presented with worsening abdominal pain for 6 months. #Metastatic Gastric neoplasm -Bx revealed poorly differentiated adenocarcinoma -Appointment scheduled in [facility] (Details in DC Plan) -Continue Al Hydroxide/Mg Hydroxide Suspension 30ml Q6H PRN, Pantoprazole 40mg daily #Hyperbillirubinemia -TBili 4.2, DBilli 2.5, GGT 418, ALP 190 -GI (Dr. Garcia) Consulted, Appreciate Rec's -MRCP pending -D/C Labetalol, Acetaminophen #Dysphagia -Speech and Swallow consulted, MBS reviewed -Dysphagia Puree diet #Iron Deficiency Anemia -Ferrous sulfate 325mg #HTN -Losartan 50mg PO BID #Constipation -Colace, Senna #FEN -No standing fluids -Lytes WNL -Dysphagia Puree diet #PPx -DVT: Lovenox Visit type - Emergency Visit Emergency Visit: Yes ED Registration Date: 09/24/18 Care time: The patient presented to the Emergency Department on the above date and was hospitalized for further evaluation of their emergent condition. - New Patient This patient is new to me today: No - Critical Care Critical Care patient: No - Discharge Referral Referred to [facility] Med P.C.: No
--- NOTE | 2018-09-30 18:11 | PN ---
Teaching Attending Note Name of Resident: Eloise Crump ATTENDING PHYSICIAN STATEMENT I saw and evaluated the patient. I reviewed the resident's note and discussed the case with the resident. I agree with the resident's findings and plan as documented. SUBJECTIVE: patient reports he is feeling weak and having abdominal pain. OBJECTIVE: Vital Signs Period Temp Pulse Resp BP Sys/Dangelo Pulse Ox Last 24 Hr 98 F-99.2 F 57-82 18-20 115-137/56-79 98-98 HEART: S1S2, RRR LUNGS: Clear ABDOMEN: Soft, non-tender, non-distended, normal BS EXTREMITIES: No edema Laboratory Results - last 24 hr 09/29/18 09/29/18 09/30/18 18:15 20:35 06:35 WBC 9.2 RBC 4.17 Hgb 9.5 L Hct 29.7 L MCV 71.2 L MCH 22.9 L MCHC 32.1 RDW 20.5 H Plt Count 361 MPV 7.6 Neutrophils % No Result Required. Neutrophils % (Manual) 77.0 Band Neutrophils % 2.0 Lymphocytes % No Result Required. Lymphocytes % (Manual) 11.0 Monocytes % (Manual) 10 D Eosinophils % (Manual) 0.0 Basophils % (Manual) 0.0 Myelocytes % (Man) 0 Promyelocytes % (Man) 0 Blast Cells % (Manual) 0 Nucleated RBC % 0 Metamyelocytes 0 Hypochromia 1+ Platelet Estimate Normal Polychromasia 0 Poikilocytosis 0 Anisocytosis 1+ Microcytosis 1+ Macrocytosis 0 Sodium Potassium Chloride Carbon Dioxide Anion Gap BUN Creatinine Creat Clearance w eGFR Random Glucose Calcium Phosphorus Magnesium Total Bilirubin Direct Bilirubin GGT AST ALT Alkaline Phosphatase LD Total Total Protein Albumin Blood Type AB POSITIVE AB POSITIVE Antibody Screen Negative Crossmatch See Detail 09/30/18 06:35 WBC RBC Hgb Hct MCV MCH MCHC RDW Plt Count MPV Neutrophils % Neutrophils % (Manual) Band Neutrophils % Lymphocytes % Lymphocytes % (Manual) Monocytes % (Manual) Eosinophils % (Manual) Basophils % (Manual) Myelocytes % (Man) Promyelocytes % (Man) Blast Cells % (Manual) Nucleated RBC % Metamyelocytes Hypochromia Platelet Estimate Polychromasia Poikilocytosis Anisocytosis Microcytosis Macrocytosis Sodium 134 L Potassium 4.1 Chloride 100 Carbon Dioxide 26 Anion Gap 7 L BUN 14 Creatinine 0.5 L Creat Clearance w eGFR 159.99 Random Glucose 91 Calcium 7.3 L Phosphorus 2.2 L Magnesium 2.5 H Total Bilirubin 4.2 H Direct Bilirubin 2.5 H GGT 418 H AST 37 ALT 30 Alkaline Phosphatase 190 H LD Total 152 Total Protein 5.3 L Albumin 2.2 L Blood Type Antibody Screen Crossmatch Current Medications Generic Name Dose Route Start Last Admin Trade Name Freq PRN Reason Stop Dose Admin Al Hydroxide/Mg Hydroxide 30 ml 09/24/18 04:08 Mylanta Oral Suspension - PO Q6H PRN DYSPEPSIA Albuterol Sulfate 1 amp 09/28/18 13:18 Ventolin 0.083% Nebulizer Soln - NEB Q6H PRN SHORT OF BREATH/WHEEZING Amino Acids 30 ml 09/28/18 17:30 09/30/18 16:42 Prosource No Carb Liquid Pkt PO Not Given BID@0800,1730 LOLA Docusate Sodium 100 mg 09/27/18 14:00 09/30/18 13:50 Colace - PO Not Given TID LOLA Enoxaparin Sodium 40 mg 09/27/18 14:00 09/30/18 09:08 Lovenox - SQ 40 mg DAILY LOLA Administration Ferrous Sulfate 325 mg 09/27/18 14:00 09/30/18 09:09 Feosol - PO 325 mg DAILY LOLA Administration Losartan Potassium 50 mg 09/24/18 10:00 09/30/18 09:09 Cozaar - PO 50 mg BID LOLA Administration Pantoprazole Sodium 40 mg 09/24/18 10:00 09/30/18 09:09 Protonix - PO 40 mg DAILY LOLA Administration Senna 1 tab 09/27/18 14:00 09/30/18 09:09 Senna - PO Not Given BID LOLA ASSESSMENT AND PLAN: This is an 82 year old man with a history of HTN who presented to the ED with abdominal pain. 1. Gastric adenocarcinoma, poorly differentiated, with possible lung and bone ( left iliac) mets - Further staging as outpatient - Surgical oncology evaluation as outpatient - Continue pureed diet with thin liquids 2. Direct hyperbilirubinemia with elevated alk phos and GGT, normal transaminases - RUQ US (09/23) showed gallbladder partially filled with sludge - CT abd/pelvis (09/23) showed overdistended gallbladder with no stones, no biliary tract dilatation - Discontinue labetalol (hepatotoxicity), acetaminophen - MRCP to evaluate for obstruction, metastatic disease 3. Iron-deficiency anemia - s/p Venofer x3 - Transfused 1 unit PRBCs 09/29 - Continue ferrous sulfate 4. HTN - Continue losartan - Discontinue labetalol secondary to hepatotoxicity - Monitor BP
[2018-10-01] MEDS: DOCUSATE SODIUM 100 MG CAPSULE (FP) PO SCH ×3 (05:44→21:34)
[2018-10-01 07:03] LABS: HEMATOCRIT 32.7 % (35.4-49); HEMOGLOBIN 10.4 GM/dL (11.7-16.9); MCH 22.6 pg (25.7-33.7); MCHC 31.7 g/dl (32.0-35.9); MEAN CELL VOLUME 71.2 fl (80-96); MEAN PLT VOLUME 7.3 fl (7.5-11.1); PLATELET COUNT 387 K/MM3 (134-434); WHITE BLOOD COUNT 8.2 K/mm3 (4.0-10.0)
[2018-10-01 07:22] LABS: INR 1.18 (0.83-1.09); PROTHROMBIN TIME (PATIENT) 13.9 SEC (9.7-13.0)
[2018-10-01 07:48] LABS: ALBUMIN 2.2 g/dl (3.4-5.0); ALK PHOS 310 U/L (45-117); ANION GAP 9 MMOL/L (8-16); BILIRUBIN,DIRECT 2.8 mg/dL (0.0-0.2); BILIRUBIN,TOTAL 3.3 mg/dL (0.2-1); BLOOD UREA NITROGEN 12 mg/dL (7-18); CALCIUM 7.8 mg/dL (8.5-10.1); CHLORIDE 102 mmol/L (98-107); CO2 23 mmol/L (21-32); CREATININE 0.6 mg/dL (0.55-1.3); GLUCOSE,RANDOM 206 mg/dL (74-106); MAGNESIUM 2.3 mg/dL (1.8-2.4); PHOSPHOROUS 2.1 mg/dL (2.5-4.9); POTASSIUM 3.9 mmol/L (3.5-5.1); SGOT/AST 44 U/L (15-37); SGPT/ALT 42 U/L (13-61); SODIUM 134 mmol/L (136-145); TOT PROT 5.3 g/dl (6.4-8.2)
[2018-10-01] MEDS: LOSARTAN POTASSIUM 50 MG TABLET (FP) PO SCH ×2 (09:59→21:34)
[2018-10-01] MEDS: FERROUS SO4 325 MG TABLET (FP) PO SCH (09:59)
[2018-10-01] MEDS: PANTOPRAZOLE 40 MG TABLET (FP) PO SCH (09:59)
[2018-10-01] MEDS: ENOXAPARIN NA (PORCINE) 40 MG/0.4 ML DISP.SYRIN SQ SCH (09:59)
[2018-10-01] MEDS: AMINO ACIDS/PROTEIN HYDROLYS 30 ML LIQUID.PKT PO SCH ×2 (10:04→17:31)
[2018-10-01] MEDS: SENNOSIDES 8.6MG TABLET (FP) PO SCH ×2 (10:09→21:34)
[2018-10-01 11:29] LABS: ANISOCYTOSIS 1+; MACROCYTOSIS 0; PLATELET ESTIMATE NORMAL; TARGET CELLS 1+
--- NOTE | 2018-10-01 13:40 | PN ---
Physical Exam: SUBJECTIVE: Patient seen and examined. Patient said hes frustrated. He wants to go home. No new complaints. OBJECTIVE: Vital Signs Period Temp Pulse Resp BP Sys/Dangelo Pulse Ox Last 24 Hr 98 F-99.4 F 57-82 18-22 110-138/53-73 98 GENERAL: comfortable, in NAD HEAD: NCAT EYES: EOMI ENT: Moist mucous membranes NECK: Supple LUNGS: Diminished breath sound at the bases, no wheezes, no crackles HEART: Regular rate and rhythm, S1, S2 without murmur ABDOMEN: Soft, Nontender, nondistended, + bowel sounds EXTREMITIES: No edema NEUROLOGICAL: Cranial nerves II through XII grossly intact. Laboratory Results - last 24 hr 10/01/18 10/01/18 10/01/18 06:00 06:00 06:00 WBC 8.2 RBC 4.60 Hgb 10.4 L Hct 32.7 L MCV 71.2 L MCH 22.6 L MCHC 31.7 L RDW 21.0 H Plt Count 387 MPV 7.3 L Absolute Neuts (auto) 5.0 Neutrophils % No Result Required. Neutrophils % (Manual) 79.4 Band Neutrophils % 0.0 Lymphocytes % No Result Required. Lymphocytes % (Manual) 14.4 D Monocytes % (Manual) 5 Eosinophils % (Manual) 1.0 D Basophils % (Manual) 0.0 Myelocytes % (Man) 0 Promyelocytes % (Man) 0 Blast Cells % (Manual) 0 Nucleated RBC % 0 Metamyelocytes 0 Hypochromia 1+ Platelet Estimate Normal Polychromasia 1+ Poikilocytosis 1+ Anisocytosis 1+ Microcytosis 2+ Macrocytosis 0 Target Cells 1+ Schistocytes 1+ PT with INR 13.90 H INR 1.18 H Sodium 134 L Potassium 3.9 Chloride 102 Carbon Dioxide 23 Anion Gap 9 BUN 12 Creatinine 0.6 Creat Clearance w eGFR 129.64 Random Glucose 206 H Calcium 7.8 L Phosphorus 2.1 L Magnesium 2.3 Total Bilirubin 3.3 H Direct Bilirubin 2.8 H AST 44 H ALT 42 Alkaline Phosphatase 310 H Total Protein 5.3 L Albumin 2.2 L Active Medications Generic Name Dose Route Start Last Admin Trade Name Freq PRN Reason Stop Dose Admin Al Hydroxide/Mg Hydroxide 30 ml 09/24/18 04:08 Mylanta Oral Suspension - PO Q6H PRN DYSPEPSIA Albuterol Sulfate 1 amp 09/28/18 13:18 Ventolin 0.083% Nebulizer Soln - NEB Q6H PRN SHORT OF BREATH/WHEEZING Amino Acids 30 ml 09/28/18 17:30 10/01/18 10:04 Prosource No Carb Liquid Pkt PO 30 ml BID@0800,1730 LOLA Administration Docusate Sodium 100 mg 09/27/18 14:00 10/01/18 05:44 Colace - PO Not Given TID [facility] Enoxaparin Sodium 40 mg 09/27/18 14:00 10/01/18 09:59 Lovenox - SQ 40 mg DAILY [facility] Administration Ferrous Sulfate 325 mg 09/27/18 14:00 10/01/18 09:59 Feosol - PO 325 mg DAILY [facility] Administration Losartan Potassium 50 mg 09/24/18 10:00 10/01/18 09:59 Cozaar - PO 50 mg BID LOLA Administration Pantoprazole Sodium 40 mg 09/24/18 10:00 10/01/18 09:59 Protonix - PO 40 mg DAILY [facility] Administration Potassium Phos/Sodium Phos 1 packet 10/01/18 22:00 Phos-Nak Packet - PO BID LOLA Senna 1 tab 09/27/18 14:00 10/01/18 10:09 Senna - PO 1 tab BID LOLA Administration ASSESSMENT/PLAN: 82 y/o man, who recently arrived from [facility], with PMHx of HTN presented with worsening abdominal pain for 6 months. #Hyperbillirubinemia -better today: TBili 3.3, DBilli 2.8 -Alk phos increasing 190--->310 -GI (Dr. Garcia) Consulted, Appreciate Rec's -MRCP pending to r/o obstruction/mets -D/C Labetalol, Acetaminophen -RUQ US (09/23) showed gallbladder partially filled with sludge -CT abd/pelvis (09/23) showed overdistended gallbladder with no stones, no biliary tract dilatation #Metastatic Gastric neoplasm -Bx revealed poorly differentiated adenocarcinoma -Appointment scheduled in [facility] [place] clinic (Details in DC Plan) -Continue Al Hydroxide/Mg Hydroxide Suspension 30ml Q6H PRN, Pantoprazole 40mg daily #Dysphagia -Speech and Swallow consulted, MBS reviewed -Dysphagia Puree diet #Iron Deficiency Anemia -Venofer x 3 -Transfused 1 unit PRBCs 09/29 -Cont. Ferrous sulfate 325mg #HTN -Losartan 50mg PO BID #Constipation -Colace, Senna #FEN -No standing fluids -Lytes WNL -Dysphagia Puree diet #PPx -DVT: Lovenox Visit type - Emergency Visit Emergency Visit: Yes ED Registration Date: 09/24/18 Care time: The patient presented to the Emergency Department on the above date and was hospitalized for further evaluation of their emergent condition. - New Patient This patient is new to me today: Yes Date on this admission: 10/01/18 - Critical Care Critical Care patient: No
--- NOTE | 2018-10-01 16:22 | PN ---
Teaching Attending Note Name of Resident: Karime Franco ATTENDING PHYSICIAN STATEMENT I saw and evaluated the patient. I reviewed the resident's note and discussed the case with the resident. I agree with the resident's findings and plan as documented. SUBJECTIVE: No fever ro chills. No DECKER ,. Abd pain is not changes in R periumbilical area. no diarrhea . wants to go home OBJECTIVE: NAD Cv: RRR Lungs: CTAB Ext : no edema Abd: soft, TTP in R periumbilical area, nl BS . ND . ASSESSMENT AND PLAN: 82 y/o man with h/o HTN who presented with Abd pain and was found to have gastric mass with mets to lungs and bone 1- Poorly differentiated gastric adenocarcinoma with Mets to bone and lungs - further staging nad w/u and treatment plan as out pt EGD report and Bx report reviewed. neg for HP 2- Transaminitis : Alkphos worse today but Bili is better . MRI done report need to be corrected ( cxray report ) - will contact radiologist for report - CT report reviewed. - will d/w GI pending MRI results - Labetalol on hold 3- Iron def anemia : s/p IV iron infusion - cont ferrous sulfate 4- HTN: losartan . BP controlled 5- DVT PX: Lovenox. dispo : depends on MRI results and d/w GI Diet : Puree with thins
--- NOTE | 2018-10-01 18:13 | PN.GI ---
GI Progress Note Subjective: GI NOte( covering Dr. Rubin) : MRCP reveals obstruction of the CBD likely due to extrinsic lymph nodes with metastases. This hany ideally be palliated with a metallic expanding stent that can resist the tumor longer. I discussed this with Trung with is daughter interpreting and advised that we transfer him to [facility] where Dr Farrukh Mane can do this. They agreed and Dr Mane has accepted Trung. - Objective Vital Signs: Vital Signs Temperature 98.8 F 10/01/18 14:49 Pulse Rate 77 10/01/18 14:49 Respiratory Rate 20 10/01/18 14:49 Blood Pressure 129/51 L 10/01/18 14:49 O2 Sat by Pulse Oximetry (%) 98 09/30/18 21:00 Laboratory Tests 09/27/18 09/28/18 09/29/18 07:30 07:00 06:25 Total Bilirubin 1.0 1.4 H 1.9 H Direct Bilirubin Alkaline Phosphatase 195 H 09/30/18 10/01/18 06:35 06:00 Total Bilirubin 4.2 H 3.3 H Direct Bilirubin 2.8 H Alkaline Phosphatase 310 H Constitutional: Calm Eyes: Yes: Sclera Icterus ...Auscultate: Yes: Normoactive Bowel Sounds ...Palpate: Yes: Soft, Other (nontender) Labs: CBC, BMP 10/01/18 06:00 10/01/18 06:00 INR, PTT INR 1.18 (0.83-1.09) H 10/01/18 06:00 Assessment/Plan Impression: 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
[2018-10-01] MEDS ORDERED: NAPH,MB-DB/K PH,MBDB POWDER PACKET PO SCH (22:00)
[2018-10-01 23:00] VITALS: BP 154/59; PULSE 89; TEMP 97.7
--- NOTE | 2018-10-02 06:19 | DS ---
Physical Exam: SUBJECTIVE: Patient seen and examined. Patient said hes frustrated. He wants to go home. No new complaints. OBJECTIVE: Vital Signs Period Temp Pulse Resp BP Sys/Dangelo Pulse Ox Last 24 Hr 97.7 F-98.8 F 77-93 18-22 129-154/51-62 98-98 PHYSICAL EXAM GENERAL: comfortable, in NAD HEAD: NCAT EYES: EOMI ENT: Moist mucous membranes NECK: Supple LUNGS: Diminished breath sound at the bases, no wheezes, no crackles HEART: Regular rate and rhythm, S1, S2 without murmur ABDOMEN: Soft, Nontender, nondistended, + bowel sounds EXTREMITIES: No edema NEUROLOGICAL: Cranial nerves II through XII grossly intact. LABS Laboratory Results - last 24 hr 10/01/18 10/01/18 10/01/18 06:00 06:00 06:00 WBC 8.2 RBC 4.60 Hgb 10.4 L Hct 32.7 L MCV 71.2 L MCH 22.6 L MCHC 31.7 L RDW 21.0 H Plt Count 387 MPV 7.3 L Absolute Neuts (auto) 5.0 Neutrophils % No Result Required. Neutrophils % (Manual) 79.4 Band Neutrophils % 0.0 Lymphocytes % No Result Required. Lymphocytes % (Manual) 14.4 D Monocytes % (Manual) 5 Eosinophils % (Manual) 1.0 D Basophils % (Manual) 0.0 Myelocytes % (Man) 0 Promyelocytes % (Man) 0 Blast Cells % (Manual) 0 Nucleated RBC % 0 Metamyelocytes 0 Hypochromia 1+ Platelet Estimate Normal Polychromasia 1+ Poikilocytosis 1+ Anisocytosis 1+ Microcytosis 2+ Macrocytosis 0 Target Cells 1+ Schistocytes 1+ PT with INR 13.90 H INR 1.18 H Sodium 134 L Potassium 3.9 Chloride 102 Carbon Dioxide 23 Anion Gap 9 BUN 12 Creatinine 0.6 Creat Clearance w eGFR 129.64 Random Glucose 206 H Calcium 7.8 L Phosphorus 2.1 L Magnesium 2.3 Total Bilirubin 3.3 H Direct Bilirubin 2.8 H AST 44 H ALT 42 Alkaline Phosphatase 310 H Total Protein 5.3 L Albumin 2.2 L HOSPITAL COURSE: Date of Admission:09/24/18 82 y/o man, who recently arrived from [facility], with PMHx of HTN presented with worsening abdominal pain for 6 months. #Malignant CBD Obstruction -TBili 3.3, DBilli 2.8 -Alk phos increasing 190--->310 -GI (Dr. Garcia) Consulted, Appreciate Rec's -MRCP: 1) abrupt narrowing of the mid to distal common bile duct which appears to be due to extraluminal compression, likely from multiple enlarged pathologic fito hepatis and peripancreatic lymph notes. 2) Marked thickening involving the gastric wall of the fundus extending into the body of the stomach concerning for primary gastric malignancy versus lymphoma. 3) Multiple enlarged retroperitoneal, peripancreatic and fito hepatis lymph nodes concerning for metastic disease versus lymphoma. -RUQ US (09/23) showed gallbladder partially filled with sludge -CT abd/pelvis (09/23) showed overdistended gallbladder with no stones, no biliary tract dilatation -I discussed with the patient the need for a metallic stent placement (which we dont offer here) via ERCP to relieve the obstruction. I discussed the risks and the benefits of the invasive procedure with the patient and his daughter with the translating service over the phone. I also discussed goals of care, regarding how aggressive he wants to be with his diagnosis vs Hospice care. Patient (and family) in agreement with Transfer to [facility] for palliatve stent placement. They said they will consider hospice care after completion of the procedure. Discussed case with Dr. Romo (GI). He contacted Dr. Farrukh Mane at [facility] and he accepted patient for transfer. #Metastatic Gastric neoplasm -Bx revealed poorly differentiated adenocarcinoma -Appointment scheduled in [facility] [place] clinic (Details in DC Plan) -Continue Al Hydroxide/Mg Hydroxide Suspension 30ml Q6H PRN, Pantoprazole 40mg daily #Dysphagia -Speech and Swallow consulted, MBS reviewed -Dysphagia Puree diet #Iron Deficiency Anemia -Venofer x 3 -Transfused 1 unit PRBCs 09/29 -Cont. Ferrous sulfate 325mg #HTN -Losartan 50mg PO BID #Constipation -Colace, Senna #FEN -No standing fluids -Lytes WNL -Dysphagia Puree diet #PPx -DVT: Lovenox Date of Discharge: 10/02/18 Minutes to complete discharge: 55 Discharge Summary Reason For Visit: METASTATIC NEOPLASM, DIFFICULTY EATING Condition: Poor - Instructions Diet, Activity, Other Instructions: You are being transferred to [facility] where you will need a stent placement procedure. Referrals: Malini Ulloa MD [Other] ([address] [facility] [id number] ) Anastasiya Guerrero MD [Staff Physician] - Jeromy Villasenor MD [Staff Physician] - Disposition: TRANSFER ACUTE CARE/OTHER HOSP - Home Medications Comprehensive Discharge Medication List: Ambulatory Orders Losartan Potassium [Cozaar -] 50 mg PO BID 09/24/18 Albuterol 0.083% Nebulizer Trina [Ventolin 0.083% Nebulizer Soln -] 1 amp NEB Q6H PRN #1 amp 09/29/18 Amino Acids/Protein Hydrolys [Prosource No Carb Liquid Pkt] 30 ml PO BID@0800, 1730 #30 packet 09/29/18 Docusate Sodium [Colace -] 100 mg PO TID #90 capsule 09/29/18 Ferrous Sulfate [Feosol] 325 mg PO DAILY #30 ud 09/29/18 Labetalol HCl [Normodyne -] 100 mg PO BID #60 tablet 09/29/18 Mag Hydrox/Al Hydrox/Simeth [Mylanta Oral Suspension -] 30 ml PO Q6H PRN #30 cup 09/29/18 Pantoprazole Sodium [Protonix -] 40 mg PO DAILY #30 tablet.ec 09/29/18 Sennosides [Senna -] 1 tab PO BID #60 tablet 09/29/18 This patient is new to me today: Yes Date on this admission: 10/02/18 Emergency Visit: Yes ED Registration Date: 09/24/18 Care time: The patient presented to the Emergency Department on the above date and was hospitalized for further evaluation of their emergent condition. Critical Care patient: No - Discharge Referral Referred to [facility] No
== END 2018-10-02 00:03 | disposition short-term general hospital (02) | DRG 374 ==
LOC: JER 17:24 → JERBED 09-24 02:02 → J5S 09-24 03:06
PROVIDERS: ADMIT Internal Medicine; ATTEND Internal Medicine
PROC: 0DB68ZX Excision of Stomach, Via Natural or Artificial Opening Endoscopic, Diagnostic (ICD-10-PCS; principal; 2018-09-26 13:30)
PROC: 30233N1 Transfusion of Nonautologous Red Blood Cells into Peripheral Vein, Percutaneous Approach (ICD-10-PCS; 2018-09-29)
DX: C16.9 Malignant neoplasm of stomach, unspecified (principal); K83.1 Obstruction of bile duct; R64 Cachexia; R18.8 Other ascites; R17 Unspecified jaundice; C79.51 Secondary malignant neoplasm of bone; C78.00 Secondary malignant neoplasm of unspecified lung; E87.1 Hypo-osmolality and hyponatremia; I10 Essential (primary) hypertension; E88.09 Other disorders of plasma-protein metabolism, not elsewhere classified; R13.10 Dysphagia, unspecified; D50.9 Iron deficiency anemia, unspecified; Z68.21 Body mass index [BMI] 21.0-21.9, adult; K59.00 Constipation, unspecified; R74.0 Nonspecific elevation of levels of transaminase and lactic acid dehydrogenase [LDH]
CPT/HCPCS: 36415; 36430; 36511; 71045-TC-FY; 71270-TC; 74177-TC; 74181-TC; 74230-TC-FY; 76705-TC; 80048; 80053; 80076; 82248; 82550; 82728; 82962; 82977; 83540; 83550; 83615; 83690; 83735; 84100; 84484; 85025; 85027; 85610; 85730; 86850; 86900; 86901; 86922; 88305-TC; 88341-TC; 90670; 90688; 92611-GN; 93005; 93010; 97116-GP; 97161-GP; 99282-25; G0008; G0009; J1756; J7030; P9038; P9058